=== PATIENT | female | born 2000 | race Caucasian/White ===

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

== ENCOUNTER 2024-12-02 09:29 | Outpatient (CLI) | payer OTHER, SELFPAY ==
[2024-12-02 17:45] LABS: Basophils # 0.1 K/mm3 (0-0.2); Basophils % 1.1 % (0.1-2.0); Eosinophils # 0.1 Kmm3 (0.0-0.4); Eosinophils % 1.9 % (0.1-12.0); Hemoglobin 12.6 g/dL (12.2-16.2); Immature Granulocytes # 0.01 10^3uL; Immature Granulocytes % 0.2 %; Lymphocytes # 1.5 K/mm3 (0.7-4.5); Lymphocytes % 23.8 % (10-50); Mean Corpuscular HGB Conc 31.5 g/dL (31.8-35.4); Mean Corpuscular Hemoglobin 28.1 pg (27.0-31.2); Mean Corpuscular Volume 89.1 fl (81-99); Mean Platelet Volume 12.1 fl (7.4-10.4); Monocytes # 0.5 K/mm3 (0.1-1.0); Monocytes % 8.4 % (1.7-9.3); Neutrophils % 64.6 % (37.0-80.0); Nucleated Red Blood Cells # 0 10^3/uL; Nucleated Red Blood Cells % 0 %; Platelet Count 321 K/mm3 (142-424); Red Blood Count 4.49 M/mm3 (4.20-5.40); Red Cell Distribution Width 14.3 % (11.5-17.5); Red Cell Distribution Width-SD 46.3 fL; White Blood Count 6.2 K/mm3 (4.8-10.8)
[2024-12-02 17:56] LABS: Alanine Aminotransferase 23 U/L (12-78); Albumin Level 4.2 g/dl (3.5-5.0); Albumin/Globulin Ratio 1.1 (1.1-1.8); Alkaline Phosphatase 106 U/L (38-126); Anion Gap 18.4 mEq/L (5-15); Aspartate Amino Transferase 30 U/L (14-36); Bilirubin,Total 0.5 mg/dl (0.2-1.3); Blood Urea Nitrogen 9 mg/dl (7-17); Calcium 9.9 mg/dl (8.4-10.2); Carbon Dioxide 21 mmol/L (22.0-30.0); Chloride 103 mmol/L (98-107); Estimated Glomerular Filt Rate 104 ml/min (>60); GFR (African American) 125 ML/MIN (>60); Globulin 3.7 g/dL (1.3-3.2); Glucose 83 mg/dl (74-100); Potassium 4.4 mmoL/L (3.5-5.1); Sodium 138 mmol/L (136-145); Total Protein,Serum 7.9 g/dl (6.3-8.2)
[2024-12-02 18:14] LABS: 25-OH Vitamin D, Total 27.4 ng/mL (30-100); T4 (Thyroxine) 16.5 ug/dl (5.53-11.0)
[2024-12-02 18:26] LABS: Thyroid Stimulating Hormone 2.29 uIU/mL (0.465-4.68)
[2024-12-02 18:46] LABS: Vitamin B12 221 pg/mL (239-931)
--- OUTSIDE RECORDS SUMMARY | 2024-12-05 09:44 | XMS_ITS | Clinical Summary ---
Author Organization [employer] In [employer]atives Address [address] [place] [place] [address] Care Team Providers Care Button Grader Name Role Phone [facility] Connection, Find-A-Doc Primary Care Provider Allergies Active Allergy Reactions Criticality Noted Date Comments Amoxicillin-Pot Clavulanate Nausea And Vomiting 01/12/2014 Medications oxyCODONE-aceta minophen (PERCOCET) 5-325 mg per tablet Take 1 tablet by mouth every 4 (four) hours as needed Look-alike /Sound-alike medication . Max Daily Amount: 6 tablets 15 tablet 08/05/2024 Active Active Problems Problem Noted Date Diagnosed Date Normal labor 08/03/2024 Mild intermittent asthma 08/03/2024 Obesity 08/03/2024 Resolved Problems Problem Noted Date Diagnosed Date Resolved Date Acute pyelonephritis 09/22/2022 025 Social History Tobacco Use Types Packs/Day Years Used Date Smoking Tobacco: Never Smokeless Tobacco: Never Tobacco Cessation:Counseling Given: Not Answered Alcohol Use Standard Drinks/Week Comments Never 0 (1 standard drink = 0.6 oz pur e alcohol) PRAPARE - Transportation Answer Date Re corded In the past 12 months, has l ack of transportation kept you from medical appointments or from getting medications? No 09/22/2022 Lack of Transportation (Non-Medical) Not on file 09/22/2022 Housing Stability Vital Sign Answer Eric e Recorded In the last 12 months, was t here a time when you were not able to pay the mortgage or rent on time? No 09/22/2022 In the last 12 months, how many places have you lived? 1 09/22/2022 In the last 12 months, was t here a time when you did not have a steady place to sleep or slept in a snf (including now)? No 09/22/2022 [place] Depression Scale Answer Date Recorded [place] Depression Screening Total Score 10 08/04/2024 Last EPDS Self Harm Result Not on file 08/04 Utilities Answer Date Recorded In the past 12 months, has t he electric, gas, oil, or water company threatened to shut off services in your home? No 08/03/2024 Interpersonal Safety Answer Date Record ed How often does anyone, liliana lynn family and friends, physically hurt you? Never 08/03/2024 How often does anyone, liliana lynn family and friends, insult or talk down to you? Never 08/03/2024 How often does anyone, liliana lynn family and friends, threaten you with harm? Never 08/03/2024 How often does anyone, liliana lynn family and friends, scream or curse at you? Never 08/03/2024 Housing Stability Answer Date Recorded What is your living situation today? I have a [facility] place to live 08/03/[address] you li ve. Do you have problems with any of the following? None of the above 08/03/2024 Food Insecurity Answer Date Recorded Within the past 12 months, y ou worried that your food would run out before you got money to buy more. Never true 08/03/2024 Within the past 12 months, t he food you bought just didn't last and you didn't have money to get more. Never true 08/03/2024 Transportation Needs Answer Date Record ed In the past 12 months, has l ack of reliable transportation kept you from medical appointments, meetings, work or from getting things needed for daily living? No 08/03/2024 Financial Resource Strain Answer Date R ecorded How hard is it for you to pa y for the very basics like food, housing, medical care, and heating? Would you say it is: Not hard at all 08/03/2024 Employment Answer Date Recorded Do you want help finding or keeping work or a job? I do not need or want help 08/03/2024 Family and Community Support Answer Eric e Recorded If for any reason you need h elp with day-to-day activities such as bathing, preparing meals, shopping, managing finances, etc., do you get the help you need? I get all the help I need 08/03/2024 Feeling Lonely or Isolated 0 08/03 Educational Attainment Answer Date Abimael rded Do you speak a language other than Panamanian at ho wv? No 08/03/2024 Do you want help with school or training? For example, starting or completing job training or getting a high school diploma, GED or equivalent. No 08/03/2024 Physical Activity Answer Date Recorded Number of minutes of exercise per week 0 08/03/2024 Alcohol Use Answer Date Recorded 5 or More Drinks Per Day Past 12 Months 0 08/03/2024 Depression Answer Date Recorded Calculation of above two rows 0 Stress Answer Date Recorded Stress means a situation in which a person feels tense, restless, nervous, or anxious, or is unable to sleep at night because his or her mind is troubled all the time. Do you feel this kind of stress these days? Not at all 08/03/2024 Disabilities Answer Date Recorded Because of a physical, menta l, or emotional condition, do you have serious difficulty concentrating, remembering, or making decisions? (5 years or older) No 08/03/2024 Because of a physical, menta l, or emotional condition, do you have difficulty doing errands alone such as visiting a doctor's office or shopping? (15 years or older) No 08/03/2024 Substance Use Answer Date Recorded How many times in the past y ear have you used prescription drugs for non-medical reasons? Never 08/03/2024 How many times in the past year have you used il legal drugs? Never 08/03/2024 Comments No Sex and Gender Information Value Date Recorded Sex Assigned at Not on file Legal Sex Female 5:12 PM CDT Gender Identity Not on file Sexual Orientation Not on file Last Filed Vital Signs Vital Sign Reading Time Taken Comments Blood Pressure 105/63 08/31/2024 8:32 AM EDT Pulse 73 08/31/2024 8:32 AM EDT Temperature 37 C (98.6 F) 08/31/2024 6:43 AM EDT Respiratory Rate 18 08/31/2024 8:32 AM EDT Oxygen Saturation 98% 08/31/2024 8:32 AM EDT Inhaled Oxygen Concentration 21% 08/04/2024 8 :29 AM EST Weight 115.7 kg (255 lb) 08/31/2024 6:43 AM EDT Height 175.3 cm (5' 9 ) 08/31/2024 6:43 AM EDT Body Mass Index 37.66 08/31/2024 6:43 AM EDT Plan of Treatment Health Maintenance Due Date Last Done Comments Depression Screening (12+) 2013 HIV Screening 2016 Meningococcal B Vaccine (1 of 2 - Standard) 2017 Hepatitis C Screening 2019 DTAP/TDAP/TD VACCINES (1 - Tdap) 2020 Pneumococcal Vaccine: 0-49 Years (1 of 2 - PCV) 2019 Lipid Panel 2021 Pap Smear 2022 COVID-19 VACCINE ( - season) 2024 Influenza Vaccine (Season Ended) 2025 Tobacco Cessation Counseling and Screening (12+) 08/3108/31/2024 Insurance [employer]ETNA [facility] Advance Directives For more information, please contact: [phone] * Full Code (Latest Code Status on File) Date Activated Date Inactivated Comments 08/03/2024 8:58 AM 08/05/2024 11:10 AM * Full Code Date Activated Date Inactivated Comments 08/03/2024 12:01 AM 08/03/2024 8:58 AM * Full Code Date Activated Date Inactivated Comments 09/22/2022 9:10 PM 09/23/2022 10:55 AM Care Teams Button Grader Relationship Specialty Start Date End Date [facility] Dm Find-A-Doc [facility] [place] [address] PCP - General 07/27/24
--- OUTSIDE RECORDS SUMMARY | 2024-12-05 09:44 | XMS_ITS | Referral Summary ---
Author Organization [employer] Address [address] [place] [address] Care Team Providers Care Central Processing Technician Name Role Phone [facility] Connection, Find-A-Doc Primary Care Provider Allergies [...] place to sleep or slept in a assisted (including now)? No 09/22/2022 [place] Depression Scale Answer Date Recorded [place] Depression Screening Total Score 10 08/04/2024 Last [...] your living situation today? I have a [facility] place to live 08/03/2024 Think about [...] Do you speak a language other than Indonesian at ho ms? No 08/03/2024 Do you want help with [...] 08/31/2024 6:43 AM EDT Plan of Treatment Not on file Insurance AETNA [facility] Advance Directives For more information, please contact: [phone] * Full Code (Latest Code Status on File) Date Activated Date Inactivated Comments 08/03/2024 8:58 AM 08/05/2024 11:10 AM * Full Code Date Activated Date Inactivated Comments 08/03/2024 12:01 AM 08/03/2024 8:58 AM * Full Code Date Activated Date Inactivated Comments 09/22/2022 9:10 PM 09/23/2022 10:55 AM Care Teams Central Processing Technician Relationship Specialty Start Date End Date [facility] Connection, Find-A-Doc [facility] Connection Find-a-Doc [place], [place] [id number] PCP - General 07/27/24
[2024-12-05 15:16] LABS: Thyroglobulin Level 7.5 IU/mL (0.0-0.9)
== END 2024-12-02 23:59 | disposition home or self-care (01) ==
LOC: LAB.DROPOF 12-05 09:30
PROVIDERS: PCP Nurse Practitioner Family; Visit Provider Nurse Practitioner Family
DX: R53.83 Other fatigue (principal)
CPT/HCPCS: 80053; 82306; 82607; 84436; 84443; 85025; 86800

== ENCOUNTER 2025-02-16 11:06 | Outpatient (CLI) | payer OTHER, SELFPAY ==
--- OUTSIDE RECORDS SUMMARY | 2025-02-20 09:26 | XMS_ITS | Referral Summary ---
Author Organization [employer] ([place], [place], [place], [place]) Address [address] [place] [address] Care Team Providers Care Food Sanitarian Name Role Phone [facility] Connection, Find-A-Doc Primary Care Provider Allergies Active [...] of Transportation (Non-Medical) Not on file 09/22/2022 Utilities Answer Date Recorded In the past 12 months, has t he electric, gas, oil, or water company threatened to shut off services in your home? No 08/03/2024 Interpersonal Safety Answer Date Record ed How often does anyone, inclu ding family and friends, physically hurt you? Never [...] your living situation today? I have a [facility] place to live 08/03/2024 Think about the [...] Do you speak a language other than New Zealander at ho me? No 08/03/2024 Do you want help with school or training? For example, starting or completing job training or getting a high school diploma, GED or equivalent. No 08/03/2024 Physical Activity Answer Date Recorded Number of minutes of exercise per week 0 08/03/2024 Self Management Answer Date Recorded Because of a physical, [...] you used il legal drugs? Never 08/03/2024 Mental Health Answer Date Recorded Calculation of above two rows 0 Comments No Sex and Gender Information Value [...] Plan of Treatment Not on file Insurance [facility]ENA [facility] Advance Directives For more information, please contact: [phone] * Full Code (Latest Code Status on File) Date Activated Date Inactivated Comments 08/03/2024 8:58 AM 08/05/2024 11:10 AM * Full Code Date Activated Date Inactivated Comments 08/03/2024 12:01 AM 08/03/2024 8:58 AM * Full Code Date Activated Date Inactivated Comments 09/22/2022 9:10 PM 09/23/2022 10:55 AM Care Teams Food Sanitarian Relationship Specialty Start Date End Date [facility] Connection, Find-A-Doc [facility] [place] [address] PCP - General 07/27/24
--- OUTSIDE RECORDS SUMMARY | 2025-02-20 09:26 | XMS_ITS | Clinical Summary ---
Author Organization [employer] ([place], [place], [place], [place]) Address [address] [place] [address] Care Team Providers Care Child Welfare Worker Name Role Phone [facility] Connection, Find-A-Doc Primary Care Provider Allergies [...] Do you speak a language other than Mauritanian at ho me? No 08/03/2024 Do you [...] Panel 2021 Pap Smear 2022 COVID-19 VACCINE (1 - season) 2025 Influenza Vaccine (#1) 2025 Tobacco Cessation Counseling and Screening (12+) 08/3108/31/2024 Insurance AETNA [facility] Advance Directives For more information, please contact: [phone] * Full Code (Latest Code Status on File) Date Activated Date Inactivated Comments 08/03/2024 8:58 AM 08/05/2024 11:10 AM * Full Code Date Activated Date Inactivated Comments 08/03/2024 12:01 AM 08/03/2024 8:58 AM * Full Code Date Activated Date Inactivated Comments 09/22/2022 9:10 PM 09/23/2022 10:55 AM Care Teams Child Welfare Worker Relationship Specialty Start Date End Date [facility] Connection, Find-A-Doc [facility] Connection Find-a-Doc [place] [id number] PCP - General 07/27/24
== END 2025-02-16 23:59 ==
LOC: LAB.DROPOF 02-20 09:19
PROVIDERS: PCP Nurse Practitioner Family; Visit Provider Nurse Practitioner Family
DX: J02.9 Acute pharyngitis, unspecified (principal)
CPT/HCPCS: 87070

== ENCOUNTER 2025-03-03 10:00 | Outpatient (CLI) | payer OTHER, SELFPAY ==
[2025-03-03 19:39] LABS: Hematocrit 36.7 % (37.0-47.0); Hemoglobin 11.9 g/dL (12.2-16.2); Immature Granulocytes % 0.3 %; Mean Corpuscular HGB Conc 32.4 g/dL (31.8-35.4); Mean Corpuscular Hemoglobin 28.8 pg (27.0-31.2); Mean Corpuscular Volume 88.9 fl (81-99); Nucleated Red Blood Cells % 0 %; Platelet Count 308 K/mm3 (142-424); Red Blood Count 4.13 M/mm3 (4.20-5.40); Red Cell Distribution Width-SD 45.3 fL; White Blood Count 6.3 K/mm3 (4.8-10.8)
[2025-03-03 20:18] LABS: Free Thyroxine Index 3.5 ug/dL (5.93-13.13); T4 (Thyroxine) 16.0 ug/dl (5.53-11.0); Triiodothryronine (T3) Uptake 22 % (23.5-40.5)
[2025-03-03 20:32] LABS: Thyroid Stimulating Hormone 2.60 uIU/mL (0.465-4.68)
[2025-03-03 20:42] LABS: 25-OH Vitamin D, Total 27.9 ng/mL (30-100)
[2025-03-03 23:04] LABS: Vitamin B12 227 pg/mL (239-931)
--- OUTSIDE RECORDS SUMMARY | 2025-03-06 10:19 | XMS_ITS | Clinical Summary ---
Author Organization [employer] ([place], [place], [place], [place]) Address [address] [place] [address] Care Team Providers Care Neck Band Maker Name Role Phone [facility] Connection, Find-A-Doc Primary Care Provider [...] Do you speak a language other than Japanese at ho me? No 08/03/2024 Do you [...] Counseling and Screening (12+) 08/3108/31/2024 Insurance AETNA [facility] Advance Directives For more information, please contact: [phone] * Full Code (Latest Code Status on File) Date Activated Date Inactivated Comments 08/03/2024 8:58 AM 08/05/2024 11:10 AM * Full Code Date Activated Date Inactivated Comments 08/03/2024 12:01 AM 08/03/2024 8:58 AM * Full Code Date Activated Date Inactivated Comments 09/22/2022 9:10 PM 09/23/2022 10:55 AM Care Teams Neck Band Maker Relationship Specialty Start Date End Date [facility] Connection, Find-A-Doc [facility] Connection Find-a-Doc [place] [id number] PCP - General 07/27/24
--- OUTSIDE RECORDS SUMMARY | 2025-03-06 10:19 | XMS_ITS | Referral Summary ---
Author Organization [employer] ([place], [place], [place], [place]) Address [address] [place] [address] Care Team Providers Care Director Of Casino Marketing Name Role Phone [facility] Connection, Find-A-Doc Primary Care Provider [...] Do you speak a language other than Nigerian at ho me? No 08/03/2024 Do you [...] of Treatment Not on file Insurance [facility]ENA [facility] Advance Directives For more information, please contact: [phone] * Full Code (Latest Code Status on File) Date Activated Date Inactivated Comments 08/03/2024 8:58 AM 08/05/2024 11:10 AM * Full Code Date Activated Date Inactivated Comments 08/03/2024 12:01 AM 08/03/2024 8:58 AM * Full Code Date Activated Date Inactivated Comments 09/22/2022 9:10 PM 09/23/2022 10:55 AM Care Teams Director Of Casino Marketing Relationship Specialty Start Date End Date [facility] Connection, Find-A-Doc [facility] [place] [address] PCP - General 07/27/24
== END 2025-03-03 23:59 ==
LOC: LAB.DROPOF 03-06 10:00
PROVIDERS: PCP Nurse Practitioner Family; Visit Provider Nurse Practitioner Family
DX: E55.9 Vitamin D deficiency, unspecified (principal); E53.8 Deficiency of other specified B group vitamins; R79.89 Other specified abnormal findings of blood chemistry
CPT/HCPCS: 82306; 82607; 84436; 84443; 84479; 85025

== ENCOUNTER 2025-06-02 09:07 | Outpatient (CLI) | payer OTHER, SELFPAY ==
--- OUTSIDE RECORDS SUMMARY | 2025-05-14 23:35 | XMS_ITS | Encounter Summary ---
Author Organization [employer] ([place], [place], [place], [place], [place]) Address [address] [place] [address] Care Team Providers Care Strategy Analyst Name Role Phone Sofia Galindo NP Primary Care Provider Reason for Visit * Reason Comments Chest Pain Patient complains of mid sternal chest pain that radiates between shoulder blades that began while walking to the restroom. She had on episode of vomiting that improved the pain in her chest momentarily. Encounter Details Date Type Department Care Team (Late st Contact Info) Description 05/14/2025 11:35 PM EST - 05/15/2025 1:08 AM EST Emergency [facility] Emergency Department [address] [place] [phone] Morena Gibson MD [address] [place] [phone] Gastritis (Primary Dx); Nausea with vomiting Discharge Disposition: Home or Self Care Social History Tobacco Use Types Packs/Day Years Used Date Smoking Tobacco: Never Smokeless Tobacco: Never Alcohol Use Standard Drinks/Week Comments Never 0 [...] Do you speak a language other than Tanzanian at ho me? No 08/03/2024 Do you [...] Calculation of above two rows 0 Comments Unknown Sex and Gender Information Value Date Recorded Sex Assigned at Not on file Legal Sex Female 5:12 PM CDT Gender Identity Not on file Sexual Orientation Not on file documented as of this encounter Last Filed Vital Signs Vital Sign Reading Time Taken Comments Blood Pressure 126/91 05/15/2025 1:00 AM EST Pulse 79 05/15/2025 1:00 AM EST Temperature 35.9 C (96.7 F) 05/14/2025 11:42 PM EST Respiratory Rate 15 05/14/2025 11:42 PM EST Oxygen Saturation 96% 05/15/2025 1:00 AM EST Inhaled Oxygen Concentration - - Weight 116.1 kg (256 lb) 05/14/2025 11:42 PM EST Height 175.3 cm (5' 9 ) 05/14/2025 11:42 PM EST Body Mass Index 37.8 05/14/2025 11:42 PM EST documented in this encounter Discharge Instructions * Attachments The following attachments cannot be sent through Care Everywhere. * Nausea and Vomiting Adult (Tanzanian) * Food Choices for Gastroesophageal Reflux Disease Adult [employer] (Tanzanian) documented in this encounter Medications at Time of Discharge ondansetron (ZOFRAN-ODT) 4 MG disintegrating tablet Take 1 tablet (4 mg total) by mouth every 4 (four) hours as needed for nausea or vomiting for up to 7 days. 20 tablet 05/15/2025 12/08/202 5 oxyCODONE-acetaminop hen (PERCOCET) 5-325 mg per tablet Take 1 tablet by mouth every 4 (four) hours as needed Look-alike/S ound-alike medication. Max Daily Amount: 6 tablets 15 tablet 08/05/2024 5 documented as of this encounter ED Notes * Edinson Gary PA-C - 05/14/2025 11:45 PM EST Subjective Chief Complaint: Chest Pain (Patient complains of mid sternal chest pain that radiates between shoulder blades that began while walking to the restroom. She had on episode of vomiting that improved the pain in her chest momentarily.) HPI 24-year-old female with medical problems as listed below in the past medical history presents to the ED for evaluation of epigastric pain that radiates up into her chest, and back. Patient reports symptoms began today. She reports she has had 1 episode of nonbloody emesis. She denies any fever or chills, cough or congestion, purulent sputum production, hemoptysis, abdominal pain, diarrhea or changes in urinary habits. No recent travel or exposure to sick contacts. Denies any alcohol or illicitsubstance abuse. All further ROS is negative. Patient History Past Medical History: Diagnosis Date Asthma Past Surgical History: Procedure Laterality Date DELIVERY, SECTION N/A 08/03/2024 Procedure: DELIVERY; Surgeon: Mark Rutherford MD; Location: [facility] L&D OR; Service: Obstetrics & Gynecology (functional director); Laterality: N/A; viable girl born at 0833 QBL of 654mL humidity 16.4 temp 72.7 No family history on file. Social History Tobacco Use Smoking status: Never Smokeless tobacco: Never Substance Use Topics Alcohol use: Never I reviewed the HPI, ROS and PFSH documentation recorded by others in the medical record and supplemented my note as needed. Review of Systems Review of Systems Cardiovascular: Positive for chest pain. Gastrointestinal: Positive for nausea and vomiting. Physical Exam ED Triage Vitals [05/14/25 2342] Encounter Vitals Group BP 123/70 Girls Systolic BP Percentile Girls Diastolic BP Percentile Boys Systolic BP Percentile Boys Diastolic BP Percentile Pulse 89 Resp 15 Temp 96.7 ??F (35.9 ??C) Temp src Tympanic SpO2 100 % Weight 116.1 kg (256 lb) Height 1.753 m (5' 9 ) Head Circumference Peak Flow Pain Score Five Pain Loc Pain Education Exclude from Growth Chart Physical Exam Vitals and nursing note reviewed. Constitutional: General: She is not in acute distress. Appearance: Normal appearance. She is obese. She is not ill-appearing. HENT: Head: Normocephalic. Mouth/Throat: Mouth: Mucous membranes are moist. Pharynx: Oropharynx is clear. Cardiovascular: Rate and Rhythm: Normal rate and regular rhythm. Pulmonary: Effort: Pulmonary effort is normal. No respiratory distress. Breath sounds: Normal breath sounds. Chest: Chest wall: No tenderness. Abdominal: General: Bowel sounds are normal. Palpations: Abdomen is soft. Tenderness: There is no abdominal tenderness. Musculoskeletal: Cervical back: Neck supple. Right lower leg: No edema. Left lower leg: No edema. Neurological: Mental Status: She is alert. Mental status is at baseline. Neurological Exam Mental Status Alert. Ortho Exam ED Course & MDM Medications sodium chloride flush 10 mL (has no administration in time range) sodium chloride 0.9% (NS) bolus (1,000 mLs intravenous New Bag 05/15/25 0016) ondansetron (ZOFRAN) injection 4 mg (4 mg intravenous Given 05/15/25 0019) pantoprazole (PROTONIX) injection 80 mg (80 mg intravenous Given 05/15/25 0022) alum-mag hydroxide-simeth (MAALOX/MYLANTA) 200-200-20 mg/5 mL suspension 30 mL (30 mLs oral Given 05/15/25 0016) Results for orders placed or performed during the hospital encounter of 05/14/25 CBC with Auto Diff Result Value Ref Range WBC 11.6 (H) 4.8 - 10.8 K/??L RBC 4.33 3.50 - 5.20 M/??L Hemoglobin 12.8 11.7 - 15.8 GM/DL Hematocrit 38.2 35.0 - 47.0 % MCV 88 81 - 101 fL MCH 29.6 27.0 - 34.0 pg MCHC 33.5 32.0 - 36.0 GM/DL RDW 13.4 11.5 - 14.5 % Platelets 340 150 - 400 K/CU MM MPV 10.5 9.4 - 12.4 fL Nucleated Red Blood Cell 0.0 0 - 0.2 % % Neutros 72 37 - 80 % % Lymphs 18 10 - 50 % % Monos 8 5 - 13 % % Eos 1.1 0.0 - 7.0 % % Baso 1 0 - 3 % NRBC Absolute <0.01 0 - 0.012 K/ul # Neutros 8.35 (H) 2.00 - 6.90 K/??L # Lymphs 2.13 0.60 - 3.40 K/??L # Monos 0.92 (H) 0.00 - 0.90 K/??L # Eos 0.13 0.00 - 0.70 K/??L # Baso 0.07 0.00 - 0.20 K/??L % Imm Grans 0.20 % # IG 0.02 (H) 0.00 - 0.00 K/uL Comprehensive metabolic panel Result Value Ref Range Sodium 139 136 - 145 meq/L Potassium 4.0 3.5 - 5.1 meq/L Chloride 103 98 - 107 meq/L CO2 28 21 - 32 meq/L Calcium 9.1 8.5 - 10.1 mg/dL Glucose 91 74 - 100 mg/dL BUN 7 7 - 18 mg/dL Creatinine 0.75 0.55 - 1.10 mg/dL BUN/Creatinine 9 Albumin 3.7 3.4 - 5.0 g/dL Alkaline Phosphatase 109 46 - 116 U/L ALT 55 12 - 78 U/L AST 42 (H) 15 - 37 U/L Total Bilirubin 0.3 0.2 - 1.0 mg/dL Protein, Total 7.8 6.4 - 8.2 gm/dL Anion Gap 12 11 - 22 A/G Ratio 0.9 Globulin 4.1 g/dL Osmolality Calc 275.1 mOsm/kg eGFR (mL/min/1.73m2) >60 >=60 mL/min/1.73m2 Lipase Result Value Ref Range Lipase 55 16 - 77 U/L High Sensitivity Troponin I Result Value Ref Range Troponin I High Sensitivity (pg/mL) <4 (L) 4 - 60.3 pg/mL XR chest 1 view portable / bedside (Results Pending) Procedures Medical Decision Making 24-year-old female presents ED for evaluation of epigastric pain, nausea vomiting. On examination patient is nontoxic-appearing sitting up in bed in no acute distress. Vital signs are normal and stable. Cardiopulmonary Ricky reveals regular rate rhythm with equal and clear lung sounds bilaterally. Nochest wall tenderness to palpation. Abdominal exam reveals soft, obese abdomen that is nontender nondistended with good bowel sounds in all quadrants. IV is obtained, labs, EKG and chest x-ray performed. Patient was administered supportive measures. Upon reassessment patient is feeling much better,symptoms resolved. Will be discharged with continue measures and outpatient followup. Results discussed with patient and mom, they are agreeable to plan and return precautions. Discharged in good condition. Differential diagnosis to include but not limited to: Gastritis, pancreatitis, GERD, costochondritis Amount and/or Complexity of Data Reviewed Labs: ordered. Radiology: ordered. Risk OTC drugs. Prescription drug management. Assessment & Plan Clinical Impression Diagnosis Comment Added By Time Added Gastritis Edinson Gary PA-C 05/15/2025 12:40 AM Nausea with vomiting Edinson Gary PA-C 05/15/2025 12:40 AM Disposition Discharge [1] - 05/15/2025 12:40 AM Current Discharge Medication List START taking these medications Details ondansetron (ZOFRAN-ODT) 4 MG disintegrating tablet Take 1 tablet (4 mg total) by mouth every 4 (four) hours as needed for nausea or vomiting for up to 7 days. Qty: 20 tablet, Refills: 0 Contact information for follow-up [facility] Emergency Department Specialty: Emergency Medicine [address] [place] [phone] Next Steps: Follow up Instructions: As needed, If symptoms worsen Sofia Galindo NP Specialty: Nurse Practitioner Relationship: PCP - General [address] [place] [phone] Next Steps: Schedule an appointment as soon as possible for a visit [employer]OR [employer] AT[employer]UM Associated attestation - Morena Gibson MD - 05/14/2025 11:43 PM OPERATOR VACUUM I did not see the patient but was available in the ED for consultation. documented in this encounter Plan of Treatment Not on file documented as of this encounter Procedures Procedure Name Priority Date/Time Associated Diagnosis Comments [place] RED TOP (EXTRA TUBES) STAT 05/15/2025 12:12 AM EST [place] BLUE TOP (EXTRA TUBES) STAT 05/15/2025 12:12 AM EST [place] EXTRA TUBES STAT 05/15/2025 12:12 AM EST CBC W/ AUTO DIFF STAT 05/15/2025 12:1 2 AM EST HIGH SENSITIVITY TROPONIN I STAT 05/15/2025 12:12 AM EST LIPASE STAT 05/15/2025 12:12 AM EST COMPREHENSIVE METABOLIC PANEL STAT 05/15/2025 12:12 AM EST XR CHEST 1 VIEW PORTABLE / BEDSIDE STAT 05/15/2025 12:00 AM EST FS_MODEL_IP_ECG 12-LEAD STAT 05/14/2025 11:54 PM EST documented in this encounter Results * Red Top Extra Tubes (05/15/2025 12:12 AM EST) HOLD SPECIMEN (SJ - BKR) Hold for add-ons. 05/15/2025 2:00 AM EST [facility] Comment:Auto resulted. Blood (Blood, Veinous) Venipuncture / Unknown 05/15/2025 12:12 AM EST 05/15/2025 12:12 AM EST us Morena Gibson MD LAB BLOOD ORDERABLES Final Resul t [facility] [address] [place] [address] * Blue Top Extra Tubes (05/15/2025 12:12 AM EST) HOLD SPECIMEN (SJ - BKR) Hold for add-ons. 05/15/2025 2:00 AM EST [facility] Comment:Auto resulted. Blood (Blood, Veinous) Venipuncture / Unknown 05/15/2025 12:12 AM EST 05/15/2025 12:12 AM EST Morena Gibson MD LAB BLOOD ORDERABLES Final Resul t Performing Organization Address [facility] Co de Phone Number [facility] [address] [place] [address] * (ABNORMAL) High Sensitivity Troponin I (05/15/2025 12:12 AM EST) [facility] Troponin I High Sensitivity (pg/mL) <4(L) 4 - 60.3 pg/mL 05/15/2025 12:36 AM EST [facility] Comment: Troponin Result (pg/mL) *Interpretation 4-60.3 *Normal; less than 99th percentile of normal range >60.3 *Abnormal; greater than 99th percentile of normal range Biotin specimen concentration >300 ng/mL may lead to falsely depressed results for patient samples. Do not use this test for renal dysfunction patients (eGFR <60) unless it is confirmed that the patient is not taking Biotin. Blood Venipuncture / Unknown 05/15/2025 12:12 AM EST 05/15/2025 12:12 AM EST Morena Gibson MD LAB BLOOD ORDERABLES Final Resul t Performing Organization Address City/[facility] Co de Phone Number [facility] [address] [place] [address] * Lipase (05/15/2025 12:12 AM EST) Pathologist [facility] Lipase 55 16 - 77 U/L 05/15/2025 12:36 AM [facility] Blood Venipuncture / Unknown 05/15/2025 12:12 AM EST 05/15/2025 12:12 AM EST us Morena Gibson MD LAB BLOOD ORDERABLES Final Resul t [facility] [address] [phone] * (ABNORMAL) Comprehensive metabolic panel (05/15/2025 12:12 AM EST) Sodium 139 136 - 145 meq/L 05/15/2025 12:36 AM [facility] Potassium 4.0 3.5 - 5.1 meq/L 05/15/2025 12:36 AM [facility] Chloride 103 98 - 107 meq/L 05/15/2025 12:36 AM [facility] CO2 28 21 - 32 meq/L 05/15/2025 12:36 AM [facility] Calcium 9.1 8.5 - 10.1 mg/dL 05/15/2025 12:36 AM [facility] Glucose 91 74 - 100 mg/dL 05/15/2025 12:36 AM [facility] BUN 7 7 - 18 mg/dL 05/15/2025 12:36 AM [facility] Creatinine 0.75 0.55 - 1.10 mg/dL 05/15/2025 12:36 AM [facility] BUN/Creatinine 9 05/15/2025 12:36 AM [facility] Albumin 3.7 3.4 - 5.0 g/dL 05/15/2025 12:36 AM [facility] Alkaline Phosphatase 109 46 - 116 U/L 05/15/2025 12:36 AM [facility] ALT 55 12 - 78 U/L 05/15/2025 12:36 AM [facility] AST 42(H) 15 - 37 U/L 05/15/2025 12:36 AM EST [facility] Total Bilirubin 0.3 0.2 - 1.0 mg/dL 05/15/2025 12:36 AM [facility] Protein, Total 7.8 6.4 - 8.2 gm/dL 05/15/2025 12:36 AM [facility] Anion Gap 12 11 - 22 05/15/2025 12:36 AM EST [facility] A/G Ratio 0.9 05/15/2025 12:36 AM [facility] Globulin 4.1 g/dL 05/15/2025 12:36 AM [facility] Osmolality Calc 275.1 mOsm/kg 12:36 AM [facility] eGFR (mL/min/1.73m2) >60 >=60 mL/min/1.7 3m2 05/15/2025 12:36 AM [facility] Comment:ESTIMATED GFR IS NOT ACCURATE CREATININE CLEARANCE IN PREDICTING GLOMERULAR FILTRATION RATE. ESTIMATED GFR IS NOT APPLICABLE FOR DIALYSIS PATIENTS. Blood Venipuncture / Unknown 05/15/2025 12:12 AM EST 05/15/2025 12:12 AM EST us Morena Gibson MD LAB BLOOD ORDERABLES Final Resul t [facility] [address] [place] [address], [facility] [phone] * (ABNORMAL) CBC with Auto Diff (05/15/2025 12:12 AM EST) WBC 11.6(H) 4.8 - 10.8 K/ L 05/15/2025 12:26 AM [facility] RBC 4.33 3.50 - 5.20 M/ L 05/15/2025 12:26 AM [facility] Hemoglobin 12.8 11.7 - 15.8 GM/DL 05/15/2025 12:26 AM EST [facility] Hematocrit 38.2 35.0 - 47.0 % 05/15/2025 12:26 AM [facility] MCV 88 81 - 101 fL 05/15/2025 12:26 AM [facility] MCH 29.6 27.0 - 34.0 pg 05/15/2025 12:26 AM [facility] MCHC 33.5 32.0 - 36.0 GM/DL 05/15/2025 12:26 AM [facility] RDW 13.4 11.5 - 14.5 % 05/15/2025 12:26 AM [facility] Platelets 340 150 - 400 K/CU MM 05/15/2025 12:26 AM [facility] MPV 10.5 9.4 - 12.4 fL 05/15/2025 12:26 [facility] Nucleated Red Blood Cell 0.0 0 - 0.2 % 05/15/2025 12:26 [facility] % Neutros 72 37 - 80 % 05/15/2025 12:26 AM [facility] % Lymphs 18 10 - 50 % 05/15/2025 12:26 AM [facility] % Monos 8 5 - 13 % 05/15/2025 12:26 AM [facility] % Eos 1.1 0.0 - 7.0 % 05/15/2025 12:26 [facility] % Baso 1 0 - 3 % 05/15/2025 12:26 AM [facility] NRBC Absolute <0.01 0 - 0.012 K/ul 05/15/2025 12:26 AM [facility] # Neutros 8.35(H) 2.00 - 6.90 K/ L 05/15/2025 12:26 AM [facility] # Lymphs 2.13 0.60 - 3.40 K/ L 05/15/2025 12:26 AM [facility] # Monos 0.92(H) 0.00 - 0.90 K/ L 05/15/2025 12:26 AM [facility] # Eos 0.13 0.00 - 0.70 K/ L 05/15/2025 12:26 AM EST [facility] # Baso 0.07 0.00 - 0.20 K/ L 05/15/2025 12:26 AM EST [facility] % Imm Grans 0.20 % 05/15/2025 12:26 AM EST [facility] # IG 0.02(H) 0.00 - 0.00 K/uL 05/15/2025 12:26 AM EST [facility] Blood Venipuncture / Unknown 05/15/2025 12:12 AM EST 05/15/2025 12:12 AM EST Narrative [facility] - 05/15/2025 12:26 AM EST When CBC w/ Auto Diff is ordered the lab will add a Manual Differential as a quality check at no additional charge if: Lymphocytes greater than seventy five percent with normal or increased WBC Monocytes greater than Fifteen percent Basophil greater than four percent Bands >10% or several immature myeloids are seen on scan Blast? Flag noted Atypical Lymph flag noted us Morena Gibson MD LAB BLOOD ORDERABLES Final Resul t [facility] [address] [place] [address] * XR chest 1 view portable / bedside (05/15/2025 12:00 AM EST) Anatomical Region Laterality Modality X-Ray 05/15/2025 6:49 AM EST Impressions 05/15/2025 6:51 AM EST Underinflated with no acute cardiopulmonary process. Images reviewed, interpreted, dictated and electronically signed by Marek Fenton MD Voice medical equipment technician technology (Power [employer]) is used for the dictation of this note and sound-alike words might be erroneously placed despite reviewing this note for accuracy. Errors in dictation may reflect use of voice recognition software and not all errors in medical equipment technician may have been detected prior to signing. Narrative 05/15/2025 6:51 AM EST PORTABLE CHEST HISTORY: Midsternal chest pain radiating between the shoulder blades. COMPARISON: 09/20/2022. FINDINGS: A single portable radiograph of the chest was performed. The heart is normal in size. The aortic contours are normal. The lungs are underinflated with no infiltrate or edema. There are no pleural effusions. There is no pneumothorax identified. There is no pneumomediastinum. The visualized osseous structures demonstrate no acute abnormalities. Procedure Note Marek Fenton MD - 05/15/2025 PORTABLE CHEST HISTORY: Midsternal chest pain radiating between the shoulder blades. COMPARISON: 09/20/2022. FINDINGS: A single portable radiograph of the chest was performed. The heart is normal in size. The aortic contours are normal. The lungs are underinflated with no infiltrate or edema. There are no pleural effusions. There is no pneumothorax identified. There is no pneumomediastinum. The visualized osseous structures demonstrate no acute abnormalities. IMPRESSION: Underinflated with no acute cardiopulmonary process. Images reviewed, interpreted, dictated and electronically signed by Marek Fenton MD Voice medical equipment technician technology (Power Scribe) is used for the dictation of this note and sound-alike words might be erroneously placed despite reviewing this note for accuracy. Errors in dictation may reflect use of voice recognition software and not all errors in medical equipment technician may have been detected prior to signing. Morena Gibson MD IMG DIAGNOSTIC IMAGING ORDERABLE S Final Result * ECG 12 lead (05/14/2025 11:54 PM EST) VENTRICULAR RATE EKG/MIN 87 BPM GE MUSE ATRIAL RATE (MCT) 87 BPM GE MUSE AL Interval 142 ms GE MUSE QRS-INTERVAL (MSEC) 80 ms GE MUSE QT Interval 354 ms GE MUSE QTC Interval 425 ms GE MUSE P [place] 24 degrees GE MUSE R AXIS (MCT) 43 degrees GE MUSE T Wave [place] 25 degrees GE MUSE [place] Diagnosis Normal sinus rhythm with sinus arrhythmia Normal ECG Confirmed by Carlos HOUSER, JIMMIE ([id number]) on 05/15/2025 8:49:44 AM GE MUSE 05/14/2025 11:5 4 PM EST 05/15/2025 8:49 AM EST Morena Gibson MD ECG ORDERABLES Final Result GE MUSE documented in this encounter Visit Diagnoses Diagnosis Gastritis- Primary Unspecified gastritis and gastroduodenitis without mention of hemorrhage Nausea with vomiting documented in this encounter Administered Medications Inactive Administered Medications - up to 3 most recent administrations Medication Order MAR Action Action Date Dose Rate Site alum-mag hydroxide-simeth (MAALOX/MYLANTA) 200-200-20 mg/5 mL suspension 30 mL 30 mL Once, oral, On 05/14/25 at 2355, For 1 dose, Do NOT exceed 6 doses per order. Given 05/15/2025 12:16 AM EST 30 mLs ondansetron (ZOFRAN) injection 4 mg 4 mg Once, intravenous, On 05/14/25 at 2350, For 1 dose, For IV push, give over 2 - 5 minutes. Given 05/15/2025 12:19 AM EST 4 mg pantoprazole (PROTONIX) injection 80 mg 80 mg Once, intravenous, On 05/14/25 at 2355, For 1 dose, * DILUTE IN 10 ML NS AND GIVE IV SLOWLY OVER 3 MINUTES * Given 05/15/2025 12:22 AM EST 80 mg sodium chloride 0.9% (NS) bolus 1,000 mL Once, intravenous, Administer over 60 Minutes, On 05/14/25 at 2350, For 1 dose New Bag 05/15/2025 12:16 AM EST 1,000 mLs 1000 mL/hr sodium chloride flush 10 mL 10 mL As needed, intravenous, line care, Line care for flush, Starting on 05/14/25 at 2344, For 30 doses documented in this encounter Active and Recently Administered Medications Times are shown in EST. Scheduled Medication Order 05/13/2025 05/14/2025 05/15/2025 alum-mag hydroxide-simeth (MAALOX/MYLANTA) 200-200-20 mg/5 mL suspension 30 mL (COMPLETED) 30 mL Once, oral, On 05/14/25 at 2355, For 1 dose, Do NOT exceed 6 doses per order. 0016 (Given - Provid er: Rakan Rangel RN) ondansetron (ZOFRAN) injection 4 mg (COMPLETED) 4 mg Once, intravenous, On 05/14/25 at 2350, For 1 dose, For IV push, give over 2 - 5 minutes. 0019 (Given - Provid er: Rakan Rangel RN) pantoprazole (PROTONIX) injection 80 mg (COMPLETED) 80 mg Once, intravenous, On 05/14/25 at 2355, For 1 dose, * DILUTE IN 10 ML NS AND GIVE IV SLOWLY OVER 3 MINUTES * 0022 (Given - Provid er: Rakan Rangel RN) sodium chloride 0.9% (NS) bolus (COMPLETED) 1,000 mL Once, intravenous, Administer over 60 Minutes, On 05/14/25 at 2350, For 1 dose 0016 (New Bag - Prov ider: Rakan Rangel RN)0107 (Stopped - Provider: Rakan Rangel RN) PRN Medication Order 05/13/2025 05/14/2025 05/15/2025 sodium chloride flush 10 mL 10 mL As needed, intravenous, line care, Line care for flush, Starting on 05/14/25 at 2344, For 30 doses documented in this encounter Care Teams Strategy Analyst Relationship Specialty Start Date End Date Sofia Galindo, LELA [address] [place] [address] PCP - General Nurse Practitioner 05/14/25 documented as of this encounter
--- OUTSIDE RECORDS SUMMARY | 2025-05-16 08:31 | XMS_ITS | Encounter Summary ---
Author Organization [employer] ([place], [place], [place], [place], [place]) Address [address] [place] [address] Care Team Providers Care Labor Training Manager Name Role Phone Sofia Galindo NP Primary Care Provider Reason for Visit * Reason Comments Back Pain Pt presents to ED wi th complaints of R sided back pain that startes at her spine and radiates to her right ribs. Pt also complains of N/V. Pt states the pain woke her up around 3am. Encounter Details Date Type Department Care Team (Late st Contact Info) Description 05/16/2025 8:31 AM EST - 05/16/2025 11:37 AM EST Emergency [facility] Emergency Department [address] [place] [phone] Diego Bravo DO [address] [place] [address] Biliary colic (Primary Dx); Calculus of gallbladder without cholecystitis without obstruction Discharge Disposition: Home or Self Care Social [...] Do you speak a language other than Swedish at ho nh? No 08/03/2024 Do you want help with [...] Sign Reading Time Taken Comments Blood Pressure 149/70 05/16/2025 10:52 AM EST Pulse 79 05/16/2025 10:52 AM EST Temperature - - Respiratory Rate 20 05/16/2025 10:52 AM EST Oxygen Saturation 99% 05/16/2025 10:52 AM EST Inhaled Oxygen Concentration - - Weight 116.1 kg (256 lb) 05/16/2025 8:36 AM EST Height 175.3 cm (5' 9 ) 05/16/2025 8:36 AM EST Body Mass Index 37.8 05/16/2025 8:36 AM EST documented in this encounter Discharge Instructions * Attachments The following attachments cannot be sent through Care Everywhere. * Biliary Colic Adult (Swedish) documented in this encounter Medications at Time of Discharge HYDROcodone-acetamin ophen (NORCO) 5-325 mg per tablet Take 1 tablet by mouth every 6 (six) hours as needed for pain for up to 12 doses. Max Daily Amount: 4 tablets 12 tablet 05/16/2025 ondansetron (ZOFRAN-ODT) 4 MG disintegrating tablet Take 1 tablet (4 mg total) by mouth every 4 (four) hours as needed for nausea or vomiting for up to 7 days. 20 tablet 05/15/2025 5 promethazine (PHENERGAN) 25 MG tablet Take 1 tablet (25 mg total) by mouth every 6 (six) hours as needed for nausea for up to 7 days. 12 tablet 05/16/2025 5 documented as of this encounter ED Notes * Diego Bravo, DO - 05/16/2025 9:55 AM EST Subjective Chief Complaint: Back Pain (Pt presents to ED with complaints of R sided back pain that startes at her spine and radiates to her right ribs. Pt also complains of N/V. Pt states the pain woke her up around 3am. ) HPI 24-year-old female presents with right flank pain radiating around to her right abdomen, associatednausea vomiting no history of same no hematuria no fever, not currently on menses. Patient History Past Medical History: Diagnosis Date Asthma Past Surgical History: Procedure Laterality Date DELIVERY, SECTION N/A 08/03/2024 Procedure: DELIVERY; Surgeon: Mark Rutherford MD; Location: [facility] L&D OR; Service: Obstetrics & Gynecology (stick inserter); Laterality: N/A; viable girl born at 0833 QBL of 654mL humidity 16.4 temp 72.7 WISDOM TOOTH EXTRACTION No family history on file. Social History Tobacco Use Smoking status: Never Smokeless tobacco: Never Substance Use Topics Alcohol use: Never I reviewed the HPI, ROS and PFSH documentation recorded by others in the medical record and supplemented my note as needed. Review of Systems Review of Systems Physical Exam ED Triage Vitals Encounter Vitals Group BP 05/16/25835 (!) 144/81 Girls Systolic BP Percentile -- Girls Diastolic BP Percentile -- Boys Systolic BP Percentile -- Boys Diastolic BP Percentile -- Pulse 05/16/25835 90 Resp 05/16/2536 18 Temp -- Temp src -- SpO2 05/16/25835 99 % Weight 05/16/25835 116.1 kg (256 lb) Height 05/16/25835 1.753 m (5' 9 ) Head Circumference -- Peak Flow -- Pain Score 05/16/25 0903 Seven Pain Loc -- Pain Education -- Exclude from Growth Chart -- Physical Exam CONSTITUTIONAL: Well developed, healthy-appearing nontoxic 24-year-old female, VITAL SIGNS: per nursing, reviewed and noted SKIN: exposed skin with no rashes, ulcerations or petechiae EYES: Grossly EOMI, no icterus ENT: Normal voice. Moist mucous membranes RESPIRATORY: No increased work of breathing. No retractions. CARDIOVASCULAR: Extremities pink and warm. Good cap refill to extremities. GI: Abdomen without distention none localizes pain to the right lateral mid abdomen without focal tenderness or guarding MUSCULOSKELETAL: Age-appropriate bulk and tone, moves all 4 extremities NEUROLOGIC: Alert, oriented x 3. No gross deficits. GCS 15. PSYCH: appropriate affect. : no bladder tenderness or distention, right sided CVA tenderness Neurological Exam Ortho Exam ED Course & MDM Medications sodium chloride flush 10 mL (has no administration in time range) ketorolac (TORADOL) injection 30 mg (30 mg intravenous Given 05/16/25902) ondansetron (ZOFRAN) injection 4 mg (4 mg intravenous Given 05/16/25901) Results for orders placed or performed during the hospital encounter of 05/16/25 CBC with Auto Diff Result Value Ref Range WBC 7.1 4.8 - 10.8 K/??L RBC 4.49 3.50 - 5.20 M/??L Hemoglobin 13.2 11.7 - 15.8 GM/DL Hematocrit 39.8 35.0 - 47.0 % MCV 89 81 - 101 fL MCH 29.4 27.0 - 34.0 pg MCHC 33.2 32.0 - 36.0 GM/DL RDW 13.6 11.5 - 14.5 % Platelets 316 150 - 400 K/CU MM MPV 10.4 9.4 - 12.4 fL Nucleated Red Blood Cell 0.0 0 - 0.2 % % Neutros 66 37 - 80 % % Lymphs 22 10 - 50 % % Monos 9 5 - 13 % % Eos 2.1 0.0 - 7.0 % % Baso 1 0 - 3 % NRBC Absolute <0.01 0 - 0.012 K/ul # Neutros 4.69 2.00 - 6.90 K/??L # Lymphs 1.57 0.60 - 3.40 K/??L # Monos 0.60 0.00 - 0.90 K/??L # Eos 0.15 0.00 - 0.70 K/??L # Baso 0.06 0.00 - 0.20 K/??L % Imm Grans 0.30 % # IG 0.02 (H) 0.00 - 0.00 K/uL Comprehensive metabolic panel Result Value Ref Range Sodium 137 136 - 145 meq/L Potassium 4.1 3.5 - 5.1 meq/L Chloride 100 98 - 107 meq/L CO2 27 21 - 32 meq/L Calcium 9.1 8.5 - 10.1 mg/dL Glucose 95 74 - 100 mg/dL BUN 7 7 - 18 mg/dL Creatinine 0.93 0.55 - 1.10 mg/dL BUN/Creatinine 8 Albumin 3.8 3.4 - 5.0 g/dL Alkaline Phosphatase 110 46 - 116 U/L ALT 59 12 - 78 U/L AST 31 15 - 37 U/L Total Bilirubin 0.4 0.2 - 1.0 mg/dL Protein, Total 8.1 6.4 - 8.2 gm/dL Anion Gap 14 11 - 22 A/G Ratio 0.9 Globulin 4.3 g/dL Osmolality Calc 271.6 mOsm/kg eGFR (mL/min/1.73m2) >60 >=60 mL/min/1.73m2 Urinalysis, Reflex Microscopic and Culture If Indicated Result Value Ref Range Color, UA Light Yellow Clarity, UA Clear Specific [place], UA 1.010 1.002 - 1.030 pH, UA 6.0 5.0 - 9.0 Leukocytes, UA Negative Negative Nitrite, UA Negative Negative Protein, UA Negative Negative Glucose, UA Negative Negative Ketones, UA Negative Negative Bilirubin, UA Negative Negative Blood, UA Negative Negative Urobilinogen, UA 0.2 mg/dL Normal Specimen Source Urine, Clean Catch Screen, urine Result Value Ref Range Preg Test, Ur Negative Negative, Inconclusive CT ABDOMEN/PELVIS WITHOUT IV CONTRAST Standard Protocol; Renal Stone Protocol Final Result Cholelithiasis. Right nephrolithiasis without hydronephrosis. Images reviewed, interpreted, and dictated by Dr. Kadi Franklin. Transcribed by Ernestina Ram PA-C. Procedures Medical Decision Making Amount and/or Complexity of Data Reviewed Labs: ordered. Radiology: ordered. Risk Prescription drug management. Initial impression of presenting illness: 24-year-old female presents with right flank pain radiating around to her right abdomen, associated nausea vomiting no history of same no hematuria no fever,not currently on menses. DDX: includes but is not limited to: Renal colic biliary colic, Patient arrives 131/73 no tachycardia respiratory rate of 18 sats 99% with vitals interpreted by myself. Pertinent features from physical exam: Chest clear right CVA tenderness localizes discomfort to theright lateral mid abdomen without focal tenderness. Initial diagnostic plan: CBC CMP UA test, shared decision making patient elected for CT abdomen pelvis after discussion of labs Results from initial plan were reviewed and interpreted by me revealing nonactionable labs no nitrites or leukocytes no blood test negative nonactionable CBC CMP, CT ab pelvis with nonobstructive renal stones, gallstones without cholecystitis or obstruction per radiologist Diagnostic information from other sources: Family member at the bedside, Benjamín Interventions / Re-evaluation: Treated with Toradol and Zofran and advised pain was improved and tolerable with ER interventions Results/clinical rationale were discussed with patient and family member Consultations/Discussion of results with other physicians: None Assessment / Plan: Likely biliary colic presentation, will discharge in stable condition supportive care recommendations outpatient follow-up information provided for surgery with return precautions discussed. Short course [place] and Phenergan, Assessment & Plan Clinical Impression Diagnosis Comment Added By Time Added Biliary colic Diego Bravo, 05/16/2025 11:23 AM Calculus of gallbladder without cholecystitis without obstruction Diego Bravo, 05/16/2025 11:24 AM Disposition Discharge [1] - 05/16/2025 11:23 AM New Prescriptions HYDROCODONE-ACETAMINOPHEN (NORCO) 5-325 MG PER TABLET Take 1 tablet by mouth every 6 (six) hours as needed for pain for up to 12 doses. Max Daily Amount: 4 tablets PROMETHAZINE (PHENERGAN) 25 MG TABLET Take 1 tablet (25 mg total) by mouth every 6 (six) hours as needed for nausea for up to 7 days. Contact information for follow-up Leeroy Sears MD Specialty: Surgery, General Surgery [address] [facility] [address] Next Steps: Follow up [facility] Emergency Department Specialty: Emergency Medicine [address] [place] [phone] Next Steps: Follow up Instructions: As needed Electronically Signed By Diego Bravo DO 05/16/25 1126 WORKER documented in this encounter Plan of Treatment Not on file documented as of this encounter Procedures Procedure Name Priority Date/Time Associated Diagnosis Comments CT ABDOMEN/PELVIS WITHOUT IV CONTRAST STAT 05/16/2025 10:28 AM EST URINALYSIS, REFLEX MICROSCOPIC AND CULTURE IF INDICATED STAT 05/16/2025 9:10 AM EST COMPREHENSIVE METABOLIC PANEL Add-On 05/16/2025 9:07 AM EST CBC W/ AUTO DIFF STAT 05/16/2025 8:58 AM EST SCREEN, URINE STAT 05/16/2025 8:57 AM EST documented in this encounter Results * CT ABDOMEN/PELVIS WITHOUT IV CONTRAST Standard Protocol; Renal Stone Protocol (05/16/2025 10:28 AM EST) Anatomical Region Laterality Modality Abdomen, Pelvis Computed Tomogra phy (CT) 05/16/2025 10:4 9 AM EST Impressions 05/16/2025 10:54 AM EST Cholelithiasis. Right nephrolithiasis without hydronephrosis. Images reviewed, interpreted, and dictated by Dr. Kadi Franklin. Transcribed by Ernestina Ram PA-C. Narrative 05/16/2025 10:[address] SCAN OF THE ABDOMEN AND PELVIS WITHOUT CONTRAST 05/16/2025 10:25 AM HISTORY: Acute right flank pain COMPARISON: None. PROCEDURE: Axial images were obtained from the lung bases to the pubic symphysis by computed tomography. This study was performed with techniques to keep radiation doses as low as reasonably achievable, (ALARA). Individualized dose reduction techniques using automated exposure control or adjustment of mA and/or kV according to the patient size were employed. FINDINGS: ABDOMEN: There are trace bilateral pleural effusions. There is mild bibasilar atelectasis. The heart is proper size. The limited non-contrast images of the liver are unremarkable. The gallbladder is distended. There is a gallstone within the gallbladder. The spleen prominent. No adrenal masses are seen. The aorta is normal in caliber. There is no significant free fluid or adenopathy. There are punctate stones within the right kidney. The left kidney is lobulated with cortical scarring. There is no hydronephrosis. PELVIS: The GI tract demonstrate no obstruction. The appendix is normal. The uterus is midline. The left ovary is prominent. The urinary bladder is unremarkable. There is no fluid or adenopathy. Procedure Note Halina Franklin MD - 05/16/2025 CT SCAN OF THE ABDOMEN AND PELVIS WITHOUT CONTRAST 05/16/2025 10:25 AM HISTORY: Acute right flank pain COMPARISON: None. PROCEDURE: Axial images were obtained from the lung bases to the pubic symphysis by computed tomography. This study was performed with techniques to keep radiation doses as low as reasonably achievable, (ALARA). Individualized dose reduction techniques using automated exposure control or adjustment of mA and/or kV according to the patient size were employed. FINDINGS: ABDOMEN: There are trace bilateral pleural effusions. There is mild bibasilar atelectasis. The heart is proper size. The limited non-contrast images of the liver are unremarkable. The gallbladder is distended. There is a gallstone within the gallbladder. The spleen prominent. No adrenal masses are seen. The aorta is normal in caliber. There is no significant free fluid or adenopathy. There are punctate stones within the right kidney. The left kidney is lobulated with cortical scarring. There is no hydronephrosis. PELVIS: The GI tract demonstrate no obstruction. The appendix is normal. The uterus is midline. The left ovary is prominent. The urinary bladder is unremarkable. There is no fluid or adenopathy. IMPRESSION: Cholelithiasis. Right nephrolithiasis without hydronephrosis. Images reviewed, interpreted, and dictated by Dr. Kadi Franklin. Transcribed by Ernestina Ram PA-C. us Diego Bravo DO IMG CT ORDERABLES Final Result * Urinalysis, Reflex Microscopic and Culture If Indicated (05/16/2025 9:10 AM EST) Color, UA Light Yellow 05/16/2025 9:17 AM EST [facility] Clarity, UA Clear 05/16/2025 9:17 AM EST [facility] Specific [place], UA 1.010 1.002 - 1.030 05/16/2025 9:17 AM EST [facility] pH, UA 6.0 5.0 - 9.0 05/16/2025 9:17 AM EST [facility] Leukocytes, UA Negative Negative 05/16/2025 9:17 AM EST [facility] Nitrite, UA Negative Negative 05/16/2025 9:17 AM [facility] Protein, UA Negative Negative 05/16/2025 9:17 AM [facility] Glucose, UA Negative Negative 05/16/2025 9:17 AM [facility] Ketones, UA Negative Negative 05/16/2025 9:17 AM [facility] Bilirubin, UA Negative Negative 05/16/2025 9:17 AM [facility] Blood, UA Negative Negative 05/16/2025 9:17 AM [facility] Urobilinogen, UA 0.2 mg/dL Normal 05/16/2025 9:17 AM [facility] Specimen Source Urine, Clean Catch 05/16/2025 9:17 AM [facility] Urine URINE SPECIMEN COLLECTION, CLEAN CATCH / Unknown 05/16/2025 9:10 AM EST 05/16/2025 9:14 AM EST us Diego Bravo DO URINE ORDERABLES Final Result [facility] [address] [place] [address] * Comprehensive metabolic panel (05/16/2025 9:07 AM EST) Sodium 137 136 - 145 meq/L 05/16/2025 9:29 AM EST [facility] Potassium 4.1 3.5 - 5.1 meq/L 05/16/2025 9:29 AM [facility] Chloride 100 98 - 107 meq/L 05/16/2025 9:29 AM [facility] CO2 27 21 - 32 meq/L 05/16/2025 9:29 AM [facility] Calcium 9.1 8.5 - 10.1 mg/dL 05/16/2025 9:29 AM [facility] Glucose 95 74 - 100 mg/dL 05/16/2025 9:29 AM [facility] BUN 7 7 - 18 mg/dL 05/16/2025 9:29 AM [facility] Creatinine 0.93 0.55 - 1.10 mg/dL 05/16/2025 9:29 AM [facility] BUN/Creatinine 8 05/16/2025 9:29 AM [facility] Albumin 3.8 3.4 - 5.0 g/dL 05/16/2025 9:29 AM [facility] Alkaline Phosphatase 110 46 - 116 U/L 05/16/2025 9:29 AM [facility] ALT 59 12 - 78 U/L 05/16/2025 9:29 AM [facility] AST 31 15 - 37 U/L 05/16/2025 9:29 AM [facility] Total Bilirubin 0.4 0.2 - 1.0 mg/dL 05/16/2025 9:29 AM [facility] Protein, Total 8.1 6.4 - 8.2 gm/dL 05/16/2025 9:29 AM [facility] Anion Gap 14 11 - 22 05/16/2025 9:29 AM [facility] A/G Ratio 0.9 05/16/2025 9:29 AM [facility] Globulin 4.3 g/dL 05/16/2025 9:29 AM [facility] Osmolality Calc 271.6 mOsm/kg 9:29 AM [facility] eGFR (mL/min/1.73m2) >60 >=60 mL/min/1.7 3m2 05/16/2025 9:29 AM [facility] Comment:ESTIMATED GFR IS NOT ACCURATE CREATININE CLEARANCE IN PREDICTING GLOMERULAR FILTRATION RATE. ESTIMATED GFR IS NOT APPLICABLE FOR DIALYSIS PATIENTS. Blood ENTIRE RIGHT UPPER ARM / Unknown Venipuncture / Unknown 05/16/2025 9:07 AM EST 05/16/2025 9:10 AM EST Diego Bravo DO LAB BLOOD ORDERABLES Final Resul t [facility] [address] [place] [address] * (ABNORMAL) CBC with Auto Diff (05/16/2025 8:58 AM EST) WBC 7.1 4.8 - 10.8 K/ L 05/16/2025 9:04 AM [facility] RBC 4.49 3.50 - 5.20 M/ L 05/16/2025 9:04 AM [facility] Hemoglobin 13.2 11.7 - 15.8 GM/DL 05/16/2025 9:04 AM [facility] Hematocrit 39.8 35.0 - 47.0 % 05/16/2025 9:04 AM [facility] MCV 89 81 - 101 fL 05/16/2025 9:04 AM [facility] MCH 29.4 27.0 - 34.0 pg 05/16/2025 9:04 AM [facility] MCHC 33.2 32.0 - 36.0 GM/DL 05/16/2025 9:04 AM [facility] RDW 13.6 11.5 - 14.5 % 05/16/2025 9:04 AM [facility] Platelets 316 150 - 400 K/CU MM 05/16/2025 9:04 AM [facility] MPV 10.4 9.4 - 12.4 fL 05/16/2025 9:04 AM [facility] Nucleated Red Blood Cell 0.0 0 - 0.2 % 05/16/2025 9:04 AM [facility] % Neutros 66 37 - 80 % 05/16/2025 9:04 AM [facility] % Lymphs 22 10 - 50 % 05/16/2025 9:04 AM [facility] % Monos 9 5 - 13 % 05/16/2025 9:04 AM EST [facility] % Eos 2.1 0.0 - 7.0 % 05/16/2025 9:04 AM [facility] % Baso 1 0 - 3 % 05/16/2025 9:04 AM [facility] NRBC Absolute <0.01 0 - 0.012 K/ul 05/16/2025 9:04 AM [facility] # Neutros 4.69 2.00 - 6.90 K/ L 05/16/2025 9:04 AM [facility] # Lymphs 1.57 0.60 - 3.40 K/ L 05/16/2025 9:04 AM [facility] # Monos 0.60 0.00 - 0.90 K/ L 05/16/2025 9:04 AM [facility] # Eos 0.15 0.00 - 0.70 K/ L 05/16/2025 9:04 AM [facility] # Baso 0.06 0.00 - 0.20 K/ L 05/16/2025 9:04 AM [facility] % Imm Grans 0.30 % 05/16/2025 9:04 AM [facility] # IG 0.02(H) 0.00 - 0.00 K/uL 05/16/2025 9:04 AM [facility] Blood ENTIRE RIGHT UPPER ARM / Unknown Venipuncture / Unknown 05/16/2025 8:58 AM EST 05/16/2025 9:01 AM EST [facility] - 05/16/2025 9:04 AM EST When CBC w/ Auto Diff is ordered the lab will add a Manual Differential as a quality check at no additional charge if: Lymphocytes greater than seventy five percent with normal or increased WBC Monocytes greater than Fifteen percent Basophil greater than four percent Bands >10% or several immature myeloids are seen on scan Blast? Flag noted Atypical Lymph flag noted Diego Bravo DO LAB BLOOD ORDERABLES Final Resul t Performing Organization Address City/[facility]/ZIP Co de Phone Number [facility] [address] [place] [address] * Screen, urine (05/16/2025 8:57 AM EST) Preg Test, Ur Negative Negative, Inconclusive 05/16/2025 9:20 AM EST [facility] Urine 05/16/2025 8:57 AM EST 05/16/2025 9:14 AM EST Diego Bravo DO URINE ORDERABLES Final Result Performing Organization Address [facility] Co de Phone Number [facility] [address] [place] [address] documented in this encounter Visit Diagnoses Diagnosis Biliary colic- Primary Calculus of gallbladder without mention of cholecystitis or obstruction Calculus of gallbladder without cholecystitis without obstruction documented in this encounter Administered Medications Inactive Administered Medications - up to 3 most recent administrations Medication Order MAR Action Action Date Dose Rate Site ketorolac (TORADOL) injection 30 mg 30 mg Once, intravenous, On Thu05/16/25 at 0900, For 1 dose Given 05/16/2025 9:03 AM EST 30 mg Right Arm ondansetron (ZOFRAN) injection 4 mg 4 mg Once, intravenous, On Thu05/16/25 at 0900, For 1 dose, For IV push, give over 2 - 5 minutes. Given 05/16/2025 9:02 AM EST 4 mg Right Arm sodium chloride flush 10 mL 10 mL As needed, intravenous, line care, Line care for flush, Starting on Thu05/16/25 at 0855, For 30 doses documented in this encounter Active and Recently Administered Medications Times are shown in EST. Scheduled Medication Order 05/14/2025 05/15/2025 05/16/2025 ketorolac (TORADOL) injection 30 mg (COMPLETED) 30 mg Once, intravenous, On Thu05/16/25 at 0900, For 1 dose 0903 (Given - Provid er: Lucien Austin) ondansetron (ZOFRAN) injection 4 mg (COMPLETED) 4 mg Once, intravenous, On Thu05/16/25 at 0900, For 1 dose, For IV push, give over 2 - 5 minutes. 0902 (Given - Provid er: Lucien Austin) PRN Medication Order 05/14/2025 05/15/2025 05/16/2025 sodium chloride flush 10 mL 10 mL As needed, intravenous, line care, Line care for flush, Starting on Thu05/16/25 at 0855, For 30 doses documented in this encounter Care Teams Labor Training Manager Relationship Specialty Start Date End Date Sofia Galindo, LELA [address] [place] [address] PCP - General Nurse Practitioner 05/14/25 documented as of this encounter
[2025-06-02 16:48] LABS: Hematocrit 38.7 % (37.0-47.0); Hemoglobin 12.3 g/dL (12.2-16.2); Immature Granulocytes % 0.2 %; Mean Corpuscular HGB Conc 31.8 g/dL (31.8-35.4); Mean Corpuscular Hemoglobin 28.7 pg (27.0-31.2); Mean Corpuscular Volume 90.4 fl (81-99); Nucleated Red Blood Cells % 0 %; Platelet Count 325 K/mm3 (142-424); Red Blood Count 4.28 M/mm3 (4.20-5.40); Red Cell Distribution Width-SD 44.0 fL; White Blood Count 5.7 K/mm3 (4.8-10.8)
[2025-06-02 17:10] LABS: Alanine Aminotransferase 50 U/L (12-78); Albumin Level 4.5 g/dl (3.5-5.0); Albumin/Globulin Ratio 1.5 (1.1-1.8); Alkaline Phosphatase 119 U/L (38-126); Anion Gap 14.2 mEq/L (5-15); Aspartate Amino Transferase 44 U/L (14-36); Bilirubin,Total 0.8 mg/dl (0.2-1.3); Blood Urea Nitrogen 15 mg/dl (7-17); Calcium 9.3 mg/dl (8.4-10.2); Carbon Dioxide 25 mmol/L (22.0-30.0); Chloride 103 mmol/L (98-107); Creatinine,Serum 0.90 mg/dl (0.52-1.04); Estimated Glomerular Filt Rate 77 ml/min (>60); GFR (African American) 93 ML/MIN (>60); Globulin 3.0 g/dL (1.3-3.2); Glucose 77 mg/dl (74-100); Potassium 4.2 mmoL/L (3.5-5.1); Sodium 138 mmol/L (136-145); Total Protein,Serum 7.5 g/dl (6.3-8.2)
[2025-06-02 17:29] LABS: 25-OH Vitamin D, Total 59.1 ng/mL (30-100)
[2025-06-02 18:00] LABS: Vitamin B12 724 pg/mL (239-931)
[2025-06-02 20:11] LABS: Iron 108 ug/dL (37-170)
[2025-06-02 20:20] LABS: Total Iron Binding Capacity 390 ug/dL (265-497)
[2025-06-02 20:47] LABS: Ferritin 11.7 ng/ml (6.24-137)
--- OUTSIDE RECORDS SUMMARY | 2025-06-03 09:35 | XMS_ITS | Encounter Summary ---
Author Organization [employer] ([place], [place], [place], [place], [place]) Address [address] [place] [address] Care Team Providers Care Shellfish Checker Name Role Phone Sofia Galindo NP Primary Care Provider Encounter Details Date Type Department Care Team (Latest Contact Info) Description 05/16/2025 Travel Social History Tobacco Use Types Packs/Day Years [...] Do you speak a language other than [facility]? No 08/03/2024 Do you want help with [...] on file documented as of this encounter Plan of Treatment Not on file documented as of this encounter Visit Diagnoses Not on filedocumented in this encounter Care Teams Shellfish Checker Relationship Specialty Start Date End Date oSfia Galindo, LELA [address] [place] [address] PCP - General Nurse Practitioner 05/14/25 documented as of this encounter
--- OUTSIDE RECORDS SUMMARY | 2025-06-03 09:35 | XMS_ITS | Clinical Summary ---
Author Organization [employer] ([place], [place], [place], [place], [place]) Address [address] [place] [address] Care Team Providers Care Insurance Examining Clerk Name Role Phone Sofia Galindo NP Primary Care Provider Allergies Active Allergy Reactions Criticality Noted Date Comments Amoxicillin-Pot Clavulanate Nausea And Vomiting 01/12/2014 Medications HYDROcodone-acetam inophen (NORCO) 5-325 mg per tablet Take 1 tablet by mouth every 6 (six) hours as needed for pain for up to 12 doses. Max Daily Amount: 4 tablets 12 tablet 05/16/20 25 Active oxyCODONE-acetamin ophen (PERCOCET) 5-325 mg per tablet Take 1 tablet by mouth every 4 (four) hours as needed Look-alike /Sound-alike medication . Max Daily Amount: 6 tablets 15 tablet 08/05/19 25 025 Discontinu ed(Therapy completed) ondansetron (ZOFRAN-ODT) 4 MG disintegrating tablet Take 1 tablet (4 mg total) by mouth every 4 (four) hours as needed for nausea or vomiting for up to 7 days. 20 tablet 05/15/20 25 025 promethazine (PHENERGAN) 25 MG tablet Take 1 tablet (25 mg total) by mouth every 6 (six) hours as needed for nausea for up to 7 days. 12 tablet 05/16/20 25 025 Active Problems Problem Noted Date Diagnosed Date Normal labor 08/03/2024 Mild intermittent asthma 08/03/2024 Obesity 08/03/2024 Resolved Problems Problem Noted Date Diagnosed Date Resolved Date Acute pyelonephritis 09/22/2022 025 Encounters Date Type Department Care Team Description 05/16/2025 8:31 AM EST - 05/16/2025 11:37 AM EST Emergency [facility] Emergency Department [address] [place] [address] Diego Bravo DO Biliary colic (Primary Dx); Calculus of gallbladder without cholecystitis without obstruction Discharge Disposition: Home or Self Care 05/16/2025 Travel 05/14/2025 11:35 PM EST - 05/15/2025 1:08 AM EST Emergency [facility] Emergency Department [address] [place] [address] Morena Gibson MD Gastritis (Primary Dx); Nausea with vomiting Discharge Disposition: Home or Self Care 05/14/2025 Travel from Last 3 Months Social History Tobacco Use Types Packs/Day Years [...] Do you speak a language other than [place]ian at [facility]? No 08/03/2024 Do you want help with [...] Pulse 79 05/16/2025 10:52 AM EST Temperature 35.9 C (96.7 F) 05/14/2025 11:42 PM EST Respiratory Rate 20 05/16/2025 10:52 AM EST Oxygen Saturation 99% 05/16/2025 10:52 AM EST Inhaled Oxygen Concentration 21% 08/04/2024 8 :29 AM EST Weight 116.1 kg (256 lb) 05/16/2025 8:36 AM EST Height 175.3 cm (5' 9 ) 05/16/2025 8:36 AM EST Body Mass Index 37.8 05/16/2025 8:36 AM EST Plan of Treatment Health Maintenance Due Date Last Done Comments Depression Screening (12+) 2013 HIV Screening 2016 Meningococcal B Vaccine (1 of 2 - Standard) 2017 Hepatitis C Screening 2019 Pneumococcal Vaccine: 0-49 Years (1 of 2 - PCV) 2019 Lipid Panel 2021 Pap Smear 2022 COVID-19 VACCINE ( - season) 2025 Influenza Vaccine (#1) 2025 Tobacco Cessation Counseling and Screening (12+) 05/1605/16/2025 DTAP/TDAP/TD VACCINES (2 - Td or Tdap) 06/13/2034 Procedures Procedure Name Priority Date/Time Associated Diagnosis Comments CT ABDOMEN/PELVIS WITHOUT IV CONTRAST STAT 05/16/2025 10:28 AM EST URINALYSIS, REFLEX MICROSCOPIC AND CULTURE IF INDICATED STAT 05/16/2025 9:10 AM EST COMPREHENSIVE METABOLIC PANEL Add-On 05/16/2025 9:07 AM EST CBC W/ AUTO DIFF STAT 05/16/2025 8:58 AM EST SCREEN, URINE STAT 05/16/2025 8:57 AM EST [place] RED TOP (EXTRA TUBES) STAT 05/15/2025 12:12 AM EST [place] BLUE TOP (EXTRA TUBES) STAT 05/15/2025 12:12 AM EST HIGH SENSITIVITY TROPONIN I STAT 05/15/2025 12:12 AM EST LIPASE STAT 05/15/2025 12:12 AM EST COMPREHENSIVE METABOLIC PANEL STAT 05/15/2025 12:12 AM EST CBC W/ AUTO DIFF STAT 05/15/2025 12:1 2 AM EST [place] EXTRA TUBES STAT 05/15/2025 12:12 AM EST XR CHEST 1 VIEW PORTABLE / BEDSIDE STAT 05/15/2025 12:00 AM EST FS_MODEL_IP_ECG 12-LEAD STAT 05/14/2025 11:54 PM EST from Last 3 Months Results * CT ABDOMEN/PELVIS WITHOUT IV CONTRAST [...] Kadi Franklin. Transcribed by Ernestina Ram PA-C. Diego Bravo DO IMG CT ORDERABLES Final Result * Urinalysis, Reflex Microscopic and Culture If Indicated (05/16/2025 9:10 AM EST) Color, UA Light Yellow 05/16/2025 9:17 AM [facility] Clarity, UA Clear 05/16/2025 9:17 AM [facility] Specific Corona, UA 1.010 1.002 - 1.030 05/16/2025 9:17 AM [facility] pH, UA 6.0 5.0 - 9.0 05/16/2025 9:17 AM [facility] Leukocytes, UA Negative Negative 05/16/2025 9:17 AM [facility] Nitrite, UA Negative Negative 05/16/2025 9:17 AM [facility] Protein, UA Negative Negative 05/16/2025 9:17 AM [facility] Glucose, UA Negative Negative 05/16/2025 9:17 AM [facility] Ketones, UA Negative Negative 05/16/2025 9:17 AM [facility] Bilirubin, UA Negative Negative 05/16/2025 9:17 AM [facility] Blood, UA Negative Negative 05/16/2025 9:17 AM [facility] Urobilinogen, UA 0.2 mg/dL Normal 05/16/2025 9:17 AM [facility] Specimen Source Urine, Clean Catch 05/16/2025 9:17 AM [facility] Urine URINE SPECIMEN COLLECTION, CLEAN CATCH / Unknown 05/16/2025 9:10 AM EST 05/16/2025 9:14 AM EST Diego Bravo DO URINE ORDERABLES Final Result [facility] [address] [place] [address], [facility] [phone] * Comprehensive metabolic panel (05/16/2025 9:07 AM EST) Only the most recent of2 resultswithin the time period is included. Sodium 137 136 - 145 meq/L 05/16/2025 9:29 AM EST [facility] Potassium 4.1 3.5 - 5.1 meq/L 05/16/2025 9:29 AM EST [facility] Chloride 100 98 - 107 meq/L 05/16/2025 9:29 AM [facility] CO2 27 21 - 32 meq/L 05/16/2025 9:29 AM [facility] Calcium 9.1 8.5 - 10.1 mg/dL 05/16/2025 9:29 AM [facility] Glucose 95 74 - 100 mg/dL 05/16/2025 9:29 AM [facility] BUN 7 7 - 18 mg/dL 05/16/2025 9:29 AM [facility] Creatinine 0.93 0.55 - 1.10 mg/dL 05/16/2025 9:29 AM [facility] BUN/Creatinine 8 05/16/2025 9:29 AM [facility] Albumin 3.8 3.4 - 5.0 g/dL 05/16/2025 9:29 AM EST [facility] Alkaline Phosphatase 110 46 - 116 U/L 05/16/2025 9:29 AM [facility] ALT 59 12 - 78 U/L 05/16/2025 9:29 AM [facility] AST 31 15 - 37 U/L 05/16/2025 9:29 AM [facility] Total Bilirubin 0.4 0.2 - 1.0 mg/dL 05/16/2025 9:29 AM [facility] Protein, Total 8.1 6.4 - 8.2 gm/dL 05/16/2025 9:29 AM [facility] Anion Gap 14 11 - 22 05/16/2025 9:29 AM EST [facility] A/G Ratio 0.9 05/16/2025 9:29 AM EST [facility] Globulin 4.3 g/dL 05/16/2025 9:29 AM [facility] Osmolality Calc 271.6 mOsm/kg 9:29 AM [facility] eGFR (mL/min/1.73m2) >60 >=60 mL/min/1.7 3m2 05/16/2025 9:29 AM [facility] Comment:ESTIMATED GFR IS NOT ACCURATE CREATININE CLEARANCE IN PREDICTING GLOMERULAR FILTRATION RATE. ESTIMATED GFR IS NOT APPLICABLE FOR DIALYSIS PATIENTS. Blood ENTIRE RIGHT UPPER ARM / Unknown Venipuncture / Unknown 05/16/2025 9:07 AM EST 05/16/2025 9:10 AM EST Diego Bravo DO LAB BLOOD ORDERABLES Final Resul t [facility] [address] [place] [address] * (ABNORMAL) CBC with Auto Diff (05/16/2025 8:58 AM EST) Only the most recent of2 resultswithin the time period is included. WBC 7.1 4.8 - 10.8 K/ L 05/16/2025 9:04 AM [facility] RBC 4.49 3.50 - 5.20 M/ L 05/16/2025 9:04 AM [facility] Hemoglobin 13.2 11.7 - 15.8 GM/DL 05/16/2025 9:04 AM [facility] Hematocrit 39.8 35.0 - 47.0 % 05/16/2025 9:04 AM [facility] MCV 89 81 - 101 fL 05/16/2025 9:04 AM [facility] MCH 29.4 27.0 - 34.0 pg 05/16/2025 9:04 AM [facility] MCHC 33.2 32.0 - 36.0 GM/DL 05/16/2025 9:04 AM [facility] RDW 13.6 11.5 - 14.5 % 05/16/2025 9:04 AM [facility] Platelets 316 150 - 400 K/CU MM 05/16/2025 9:04 AM [facility] MPV 10.4 9.4 - 12.4 fL 05/16/2025 9:04 AM [facility] Nucleated Red Blood Cell 0.0 0 - 0.2 % 05/16/2025 9:04 AM [facility] % Neutros 66 37 - 80 % 05/16/2025 9:04 AM [facility] % Lymphs 22 10 - 50 % 05/16/2025 9:04 AM [facility] % Monos 9 5 - 13 % 05/16/2025 9:04 AM [facility] % Eos 2.1 0.0 - 7.0 % 05/16/2025 9:04 AM [facility] % Baso 1 0 - 3 % 05/16/2025 9:04 AM [facility] NRBC Absolute <0.01 0 - 0.012 K/ul 05/16/2025 9:04 AM [facility] # Neutros 4.69 2.00 - 6.90 K/ L 05/16/2025 9:04 AM [facility] # Lymphs 1.57 0.60 - 3.40 K/ L 05/16/2025 9:04 AM [facility] # Monos 0.60 0.00 - 0.90 K/ L 05/16/2025 9:04 AM [facility] # Eos 0.15 0.00 - 0.70 K/ L 05/16/2025 9:04 AM [facility] # Baso 0.06 0.00 - 0.20 K/ L 05/16/2025 9:04 AM [facility] % Imm Grans 0.30 % 05/16/2025 9:04 AM EST [facility] # IG 0.02(H) 0.00 - 0.00 K/uL 05/16/2025 9:04 AM EST [facility] Blood ENTIRE RIGHT UPPER ARM / Unknown Venipuncture / Unknown 05/16/2025 8:58 AM EST 05/16/2025 9:01 AM EST Narrative [facility] - 05/16/2025 9:04 AM EST When [...] Flag noted Atypical Lymph flag noted us Diego Bravo DO LAB BLOOD ORDERABLES Final Resul t [facility] [address] [place] [address] * Screen, urine (05/16/2025 8:57 AM EST) Preg Test, Ur Negative Negative, Inconclusive 05/16/2025 9:20 AM EST [facility] Urine 05/16/2025 8:57 AM EST 05/16/2025 9:14 AM EST Diego Bravo DO URINE ORDERABLES Final Result [facility] [address] [phone] * Red Top Extra Tubes (05/15/2025 12:12 AM EST) HOLD SPECIMEN (SJ - BKR) Hold for add-ons. 05/15/2025 2:00 AM EST [facility] Comment:Auto resulted. Blood (Blood, Veinous) Venipuncture / Unknown 05/15/2025 12:12 AM EST 05/15/2025 12:12 AM EST Morena Gibson MD LAB BLOOD ORDERABLES Final Resul t Performing Organization Address City/[facility] Co de Phone Number [facility] [address] [place] [address] * Blue Top Extra Tubes (05/15/2025 12:12 AM EST) HOLD SPECIMEN (SJ - BKR) Hold for add-ons. 05/15/2025 2:00 AM EST [facility] Comment:Auto resulted. Blood (Blood, Veinous) Venipuncture / Unknown 05/15/2025 12:12 AM EST 05/15/2025 12:12 AM EST us Morena Gibson MD LAB BLOOD ORDERABLES Final Resul t Performing Organization Address [facility] Phone Number [facility] [address] [place] [address] * (ABNORMAL) High Sensitivity Troponin I (05/15/2025 12:12 AM EST) Pathologist [facility] Troponin I High Sensitivity (pg/mL) <4(L) 4 - 60.3 pg/mL 05/15/2025 12:36 AM EST [facility] Comment: Troponin Result (pg/mL) *Interpretation 4-60.3 [...] ORDERABLES Final Resul t Performing Organization Address [place]/[facility] Co de Phone Number [facility] [address] [phone] * Lipase (05/15/2025 12:12 AM EST) Lipase 55 16 - 77 U/L 05/15/2025 12:36 AM EST [facility] Blood Venipuncture / Unknown 05/15/2025 12:12 AM EST 05/15/2025 12:12 AM EST us Morena Gibson MD LAB BLOOD ORDERABLES Final Resul t [facility] [address] [phone] * XR chest 1 view portable / bedside (05/15/2025 12:00 AM EST) Anatomical Region Laterality Modality X-Ray 05/15/2025 6:49 AM EST Impressions 05/15/2025 6:51 AM EST Underinflated with no acute cardiopulmonary process. Images reviewed, interpreted, dictated and electronically signed by Marek Fenton MD Voice software engineer web services technology (Power Scribe) is used for the dictation of this note and sound-alike words might be erroneously placed despite reviewing this note for accuracy. Errors in dictation may reflect use of voice recognition software and not all errors in software engineer web services may have been detected prior to signing. [...] electronically signed by Marek Fenton MD Voice software engineer web services technology (Power MobileDevHQibe) is used for the dictation of this note and sound-alike words might be erroneously placed despite reviewing this note for accuracy. Errors in dictation may reflect use of voice recognition software and not all errors in software engineer web services may have been detected prior to signing. Morena Gibson MD IMG DIAGNOSTIC IMAGING ORDERABLE S Final Result * ECG 12 lead (05/14/2025 11:54 PM EST) VENTRICULAR RATE EKG/MIN 87 BPM GE MUSE ATRIAL RATE (MCT) 87 BPM GE MUSE DC Interval 142 ms GE MUSE QRS-INTERVAL (MSEC) 80 ms GE MUSE QT Interval 354 ms GE MUSE QTC Interval 425 ms GE MUSE P Archer 24 degrees GE MUSE R AXIS (MCT) 43 degrees GE MUSE T Wave Archer 25 degrees GE MUSE [place] Diagnosis Normal sinus rhythm with sinus arrhythmia Normal ECG Confirmed by Carlos HOUSER, JIMMIE ([id number]) on 05/15/2025 8:49:44 AM GE MUSE 05/14/2025 11:5 4 PM EST 05/15/2025 8:49 AM EST Morena Gibson MD ECG ORDERABLES Final Result GE MUSE from Last 3 Months Insurance [facility] Advance Directives For more information, please contact: [phone] * Full Code (Latest Code Status on File) Date Activated Date Inactivated Comments 08/03/2024 8:58 AM 08/05/2024 11:10 AM * Full Code Date Activated Date Inactivated Comments 08/03/2024 12:01 AM 08/03/2024 8:58 AM * Full Code Date Activated Date Inactivated Comments 09/22/2022 9:10 PM 09/23/2022 10:55 AM Care Teams Insurance Examining Clerk Relationship Specialty Start Date End Date Sofia Galindo, LELA [address] [place] [address] PCP - General Nurse Practitioner 05/14/25
--- OUTSIDE RECORDS SUMMARY | 2025-06-03 09:35 | XMS_ITS | Encounter Summary ---
Author Organization [employer] ([place], [place], [place], [place], [place]) Address [address] [place] [address] Care Team Providers Care Teenage Babysitter Name Role Phone Sofia Galindo NP Primary Care Provider Encounter Details Date Type Department Care Team (Latest Contact Info) Description 05/14/2025 Travel Social History Tobacco Use Types Packs/Day [...] Do you speak a language other than [place] at [facility]? No 08/03/2024 Do you want help with [...] on filedocumented in this encounter Care Teams Teenage Babysitter Relationship Specialty Start Date End Date Sofia Galindo, LELA [address] [place] [address] PCP - General Nurse Practitioner 05/14/25 documented as of this encounter
--- OUTSIDE RECORDS SUMMARY | 2025-06-03 09:35 | XMS_ITS | Referral Summary ---
Author Organization [email or web address] ([place], [place], [place], [place], [place]) Address [address] [place] [address] Care Team Providers Care Mail Teller Name Role Phone Sofia Galindo NP Primary Care Provider Encounters Date Type Department Care Team Description 05/16/2025 Travel 05/16/2025 8:31 AM EST - 05/16/2025 11:37 AM EST Emergency [facility] Emergency Department [address] [place] [phone] Diego Bravo DO Biliary colic (Primary Dx); Calculus of gallbladder without cholecystitis without obstruction Discharge Disposition: Home or Self Care 05/14/2025 11:35 PM EST - 05/15/2025 1:08 AM EST Emergency [facility] Emergency Department [address] [place] [phone] oMrena Gibson MD Gastritis (Primary Dx); Nausea with vomiting Discharge Disposition: Home or Self Care 05/14/2025 Travel from Last 3 Months Allergies Active Allergy Reactions Criticality Noted Date [...] Do you speak a language other than [place] at [facility]? No 08/03/2024 Do you want help [...] 05/16/2025 8:36 AM EST Plan of Treatment Not on file Procedures Procedure Name Priority Date/Time Associated Diagnosis [...] by Ernestina Ram PA-C. Diego Bravo DO [facility] ORDERABLES Final Result * Urinalysis, Reflex Microscopic and Culture If Indicated (05/16/2025 9:10 AM EST) Color, UA Light Yellow 05/16/2025 9:17 AM EST [facility] Clarity, UA Clear 05/16/2025 9:17 AM EST [facility] Specific [place], UA 1.010 1.002 - 1.030 05/16/2025 9:17 AM EST [facility] pH, UA 6.0 5.0 - 9.0 05/16/2025 9:17 AM EST [facility] Leukocytes, UA Negative Negative 05/16/2025 9:17 AM [facility] Nitrite, UA Negative Negative 05/16/2025 9:17 AM EST [facility] Protein, UA Negative Negative 05/16/2025 9:17 AM EST [facility] Glucose, UA Negative Negative 05/16/2025 9:17 AM [facility] Ketones, UA Negative Negative 05/16/2025 9:17 AM [facility] Bilirubin, UA Negative Negative 05/16/2025 9:17 AM [facility] Blood, UA Negative Negative 05/16/2025 9:17 AM [facility] Urobilinogen, UA 0.2 mg/dL Normal 05/16/2025 9:17 AM [facility] Specimen Source Urine, Clean Catch 05/16/2025 9:17 AM [facility] Urine URINE SPECIMEN COLLECTION, CLEAN CATCH / Unknown 05/16/2025 9:10 AM EST 05/16/2025 9:14 AM EST Diego Bravo DO URINE ORDERABLES Final Result Performing Organization Address City/State/[facility] Co de Phone Number [facility] [address] [place] [address] * Comprehensive metabolic panel (05/16/2025 9:07 AM EST) Only the most recent of2 resultswithin the time period is included. Sodium 137 136 - 145 meq/L 05/16/2025 9:29 AM [facility] Potassium 4.1 3.5 - 5.1 meq/L 05/16/2025 9:29 AM [facility] Chloride 100 98 - 107 meq/L 05/16/2025 9:29 AM [facility] CO2 27 21 - 32 meq/L 05/16/2025 9:29 AM [facility] Calcium 9.1 8.5 - 10.1 mg/dL 05/16/2025 9:29 AM [facility] Glucose 95 74 - 100 mg/dL 05/16/2025 9:29 AM [facility] BUN 7 7 - 18 mg/dL 05/16/2025 9:29 AM [facility] Creatinine 0.93 0.55 - 1.10 mg/dL 05/16/2025 9:29 AM [facility] BUN/Creatinine 8 05/16/2025 9:29 AM [facility] Albumin 3.8 3.4 - 5.0 g/dL 05/16/2025 9:29 AM [facility] Alkaline Phosphatase 110 46 - 116 U/L 05/16/2025 9:29 AM [facility] ALT 59 12 - 78 U/L 05/16/2025 9:29 AM [facility] AST 31 15 - 37 U/L 05/16/2025 9:29 AM [facility] Total Bilirubin 0.4 0.2 - 1.0 mg/dL 05/16/2025 9:29 AM [facility] Protein, Total 8.1 6.4 - 8.2 gm/dL 05/16/2025 9:29 AM [facility] Anion Gap 14 11 - 22 05/16/2025 9:29 AM [facility] A/G Ratio 0.9 05/16/2025 9:29 AM [facility] Globulin 4.3 g/dL 05/16/2025 9:29 AM [facility] Osmolality Calc 271.6 mOsm/kg 9:29 AM [facility] eGFR (mL/min/1.73m2) >60 >=60 mL/min/1.7 3m2 05/16/2025 9:29 AM [facility] Comment:ESTIMATED GFR IS NOT ACCURATE CREATININE CLEARANCE IN PREDICTING GLOMERULAR FILTRATION RATE. ESTIMATED GFR IS NOT APPLICABLE FOR DIALYSIS PATIENTS. Blood ENTIRE RIGHT UPPER ARM / Unknown Venipuncture / Unknown 05/16/2025 9:07 AM EST 05/16/2025 9:10 AM EST us Diego Bravo DO LAB BLOOD ORDERABLES Final Resul t [facility] [address] [phone] * (ABNORMAL) CBC with Auto Diff (05/16/2025 8:58 AM EST) Only the most recent of2 resultswithin the time period is included. WBC 7.1 4.8 - 10.8 K/ L 05/16/2025 9:04 AM [facility] RBC 4.49 3.50 - 5.20 M/ L 05/16/2025 9:04 AM EST [facility] Hemoglobin 13.2 11.7 - 15.8 GM/DL 05/16/2025 9:04 AM [facility] Hematocrit 39.8 35.0 - 47.0 % 05/16/2025 9:04 AM [facility] MCV 89 81 - 101 fL 05/16/2025 9:04 AM [facility] MCH 29.4 27.0 - 34.0 pg 05/16/2025 9:04 AM EST [facility] MCHC 33.2 32.0 - 36.0 GM/DL 05/16/2025 9:04 AM EST [facility] RDW 13.6 11.5 - 14.5 % 05/16/2025 9:04 AM [facility] Platelets 316 150 - 400 K/CU MM 05/16/2025 9:04 AM [facility] MPV 10.4 9.4 - 12.4 fL 05/16/2025 9:04 AM [facility] Nucleated Red Blood Cell 0.0 0 - 0.2 % 05/16/2025 9:04 AM [facility] % Neutros 66 37 - 80 % 05/16/2025 9:04 AM EST [facility] % Lymphs 22 10 - 50 % 05/16/2025 9:04 AM [facility] % Monos 9 5 - 13 % 05/16/2025 9:04 AM [facility] % Eos 2.1 0.0 - 7.0 % 05/16/2025 9:04 AM EST [facility] % Baso 1 0 - 3 % 05/16/2025 9:04 AM [facility] NRBC Absolute <0.01 0 - 0.012 K/ul 05/16/2025 9:04 AM [facility] # Neutros 4.69 2.00 - 6.90 K/ L 05/16/2025 9:04 AM [facility] # Lymphs 1.57 0.60 - 3.40 K/ L 05/16/2025 9:04 AM [facility] # Monos 0.60 0.00 - 0.90 K/ L 05/16/2025 9:04 AM [facility] # Eos 0.15 0.00 - 0.70 K/ L 05/16/2025 9:04 AM [facility] # Baso 0.06 0.00 - 0.20 K/ L 05/16/2025 9:04 AM EST [facility] % Imm Grans 0.30 % 05/16/2025 9:04 AM [facility] # IG 0.02(H) 0.00 - 0.00 K/uL 05/16/2025 9:04 AM [facility] Blood ENTIRE RIGHT UPPER ARM / Unknown Venipuncture / Unknown 05/16/2025 8:58 AM EST 05/16/2025 9:01 AM EST [facility] - 05/16/2025 9:04 AM EST [...] ORDERABLES Final Resul t Performing Organization Address [facility] [place]/[facility] Co de Phone Number [facility] [address] [place] [address] * Screen, urine (05/16/2025 8:57 AM EST) Preg Test, Ur Negative Negative, Inconclusive 05/16/2025 9:20 AM EST [facility] Urine 05/16/2025 8:57 AM EST 05/16/2025 9:14 AM EST Diego Bravo DO URINE ORDERABLES Final Result Performing Organization Address [facility] Co [place] Phone Number [facility] [address] [place] [address] * Red Top Extra Tubes (05/15/2025 12:12 AM EST) HOLD SPECIMEN (SJ - BKR) Hold for add-ons. 05/15/2025 2:00 AM EST [facility] Comment:Auto resulted. Blood (Blood, Veinous) Venipuncture / Unknown 05/15/2025 12:12 AM EST 05/15/2025 12:12 AM EST Morena Gibson MD LAB BLOOD ORDERABLES Final Resul t Performing Organization Address [facility] Co de Phone Number [facility] [address] [place] [address] * Blue Top Extra Tubes (05/15/2025 12:12 AM EST) HOLD SPECIMEN (SJ - BKR) Hold for add-ons. 05/15/2025 2:00 AM EST [facility] Comment:Auto resulted. Blood (Blood, Veinous) Venipuncture / Unknown 05/15/2025 12:12 AM EST 05/15/2025 12:12 AM EST us Morena Gibson MD LAB BLOOD ORDERABLES Final Resul t Performing Organization Address City/[facility]/ZIP Co de Phone Number [facility] [address] [phone] * (ABNORMAL) High Sensitivity Troponin I (05/15/2025 12:12 AM EST) Troponin I High Sensitivity (pg/mL) <4(L) 4 - 60.3 pg/mL 05/15/2025 12:36 AM EST [facility] Comment: Troponin Result (pg/mL) *Interpretation [...] ORDERABLES Final Resul t Performing Organization Address [facility] [place]/[facility] Co de Phone Number [facility] [address] [place] [address] * Lipase (05/15/2025 12:12 AM EST) Lipase 55 16 - 77 U/L 05/15/2025 12:36 AM EST [facility] Blood Venipuncture / Unknown 05/15/2025 12:12 AM EST 05/15/2025 12:12 AM EST Morena Gibson MD LAB BLOOD ORDERABLES Final Resul t [facility] [address] [phone] * XR chest 1 view portable / bedside (05/15/2025 12:00 AM EST) Anatomical Region Laterality Modality X-Ray 05/15/2025 6:49 AM EST Impressions 05/15/2025 6:51 AM EST Underinflated with no acute cardiopulmonary process. Images reviewed, interpreted, dictated and electronically signed by Marek Fenton MD Voice college archivist technology (Power Scribe) is used for the dictation of this note and sound-alike words might be erroneously placed despite reviewing this note for accuracy. Errors in dictation may reflect use of voice recognition software and not all errors in college archivist may have been detected prior to signing. [...] electronically signed by Marek Fenton MD Voice college archivist technology (Power Scribe) is used for the dictation of this note and sound-alike words might be erroneously placed despite reviewing this note for accuracy. Errors in dictation may reflect use of voice recognition software and not all errors in college archivist may have been detected prior to signing. us Morena Gibson MD IMG DIAGNOSTIC IMAGING ORDERABLE S Final Result * ECG 12 lead (05/14/2025 11:54 PM EST) VENTRICULAR RATE EKG/MIN 87 BPM GE MUSE ATRIAL RATE (MCT) 87 BPM GE MUSE [place] Interval 142 ms GE MUSE QRS-INTERVAL (MSEC) 80 ms GE MUSE QT Interval 354 ms GE MUSE QTC Interval 425 ms GE MUSE P [place] 24 degrees GE MUSE R AXIS (MCT) 43 degrees GE MUSE T Wave [place] 25 degrees GE MUSE [place] Diagnosis Normal sinus rhythm with sinus arrhythmia Normal ECG Confirmed by Carlos HOUSER RICHARD ([id number]) on 05/15/2025 8:49:44 AM GE MUSE 05/14/2025 11:5 4 PM EST 05/15/2025 8:49 AM EST us Morena Gibson MD ECG ORDERABLES Final Result GE MUSE from Last 3 Months [facility] Advance Directives For more information, please contact: [phone] * Full Code (Latest Code Status on File) Date Activated Date Inactivated Comments 08/03/2024 8:58 AM 08/05/2024 11:10 AM * Full Code Date Activated Date Inactivated Comments 08/03/2024 12:01 AM 08/03/2024 8:58 AM * Full Code Date Activated Date Inactivated Comments 09/22/2022 9:10 PM 09/23/2022 10:55 AM Care Teams Mail Teller Relationship Specialty Start Date End Date Sofia Galindo, LELA [address] [place] [address] PCP - General Nurse Practitioner 05/14/25
== END 2025-06-02 23:59 | disposition home or self-care (01) ==
LOC: LAB.DROPOF 06-03 09:33
PROVIDERS: PCP Nurse Practitioner Family; Visit Provider Nurse Practitioner Family
DX: E55.9 Vitamin D deficiency, unspecified (principal); E53.8 Deficiency of other specified B group vitamins; N20.0 Calculus of kidney; D64.9 Anemia, unspecified
CPT/HCPCS: 80053; 82306; 82607; 82728; 83540; 83550; 85025